=== PATIENT | female | born 1985 | race Caucasian/White ===

== ENCOUNTER 2021-11-05 16:25 | Emergency (ER) | payer BC ==
[~2021-11-05] VITALS: Ht 177.8 cm; Wt 89.0 kg
[2021-11-05] MEDS ORDERED: normal saline 1000ML IV soln IVB ONE (17:10)
[2021-11-05] MEDS ORDERED: oxyCODONE/APAP 5-325mg tablet PO ONE (17:50)
[2021-11-05 17:51] LABS: CLARITY,URINE CLOUDY (Clear); COLOR,URINE YELLOW (Yellow); GLUCOSE, URINE NEGATIVE (Neg); KETONES,URINE NEGATIVE (Neg); LEUKOCYTE ESTERASE ,URINE NEGATIVE (Neg); NITRITES, URINE NEGATIVE (Neg); OCCULT BLOOD,URINE NEGATIVE (Neg); PH,URINE 6.5 (4.8-8.0); PROTEIN,URINE NEGATIVE (Neg); UROBILINOGEN,URINE 0.2 E.U/dL (0.2-1.0)
[2021-11-05 17:53] LABS: UA COLLECTION TYPE CLN CATCH MIDSTREAM
[2021-11-05 18:03] LABS: MUCUS STRANDS MODERATE /LPF (Neg); SQUAMOUS EPITHELIAL CELL,UR MANY /LPF (FEW)
[2021-11-05 18:04] LABS: BACTERIA,URINE FEW /HPF (Neg); RBC,URINE 0-2 /HPF (0-2); WBC,URINE 0-4 /HPF (0-4)
[2021-11-05 18:28] LABS: BASOPHILS # (AUTO) 0.1 X10'3 (0-0.2); BASOPHILS % (AUTO) 0.7 % (0-1); EOSINOPHILS # (AUTO) 0.1 X10'3 (0-0.9); EOSINOPHILS % (AUTO) 0.5 % (0-6); HEMATOCRIT 29.9 % (35.0-45.0); HEMOGLOBIN 9.5 g/dl (12.0-16.0); LYMPHOCYTES # (AUTO) 2.1 X10'3 (1.1-4.8); LYMPHOCYTES % (AUTO) 19.3 % (21-51); MEAN CORPUSCULAR HEMOGLOBIN 21.5 PG (27.0-31.0); MEAN CORPUSCULAR HGB CONC 31.9 g/dL (33.0-36.5); MEAN CORPUSCULAR VOLUME 67.6 FL (78-98); MEAN PLATELET VOLUME 7.7 FL (7.4-10.4); MONOCYTES # (AUTO) 0.6 X10'3 (0-0.9); MONOCYTES % (AUTO) 5.3 % (2-12); NEUTROPHILS # (AUTO) 8.2 X10'3 (1.8-7.7); NEUTROPHILS % (AUTO) 74.2 % (42-75); PLATELET COUNT 321 X10'3 (140-440); RED BLOOD COUNT 4.42 X10'6 (4.20-5.60); RED CELL DISTRIBUTION WIDTH 16.3 % (11.5-14.5)
[2021-11-05] MEDS ORDERED: tamsulosin 0.4mg capsule PO STA (18:29)
[2021-11-05] MEDS ORDERED: acetaminophen 1,000mg/100ml IV 100 ML IV STA (18:29)
[2021-11-05 18:43] LABS: ALANINE AMINOTRANSFERASE 21 U/L (12-78); ALBUMIN 3.2 G/DL (3.4-5.0); ALBUMIN/GLOBULIN RATIO 1.1 (1.1-1.5); ALKALINE PHOSPHATASE 95 IU/L (46-116); ANION GAP 8 (8-16); ASPARTATE AMINO TRANSFERASE 12 U/L (10-37); BILIRUBIN,TOTAL 0.1 MG/DL (0.1-1.0); BLOOD UREA NITROGEN 10 MG/DL (7-18); BUN/CREATININE RATIO 14.5 (6.6-38.0); CALCIUM 9.2 MG/DL (8.5-10.1); CHLORIDE 106 MMOL/L (99-107); CREATININE 0.69 MG/DL (0.40-0.90); GLUCOSE 81 MG/DL (70-104); SODIUM 139 MMOL/L (135-145); TOTAL PROTEIN 6.1 G/DL (6.4-8.2); eGFR > 90 ML/MIN
[2021-11-05 19:23] VITALS: BP 132/72
[2021-11-05 19:24] LABS: PLATELET ESTIMATE NORMAL
[2021-11-05 19:25] LABS: ANISOCYTOSIS 1+; MICROCYTOSIS 2+
[2021-11-05] MEDS ORDERED: OXYC-150 PO (19:25)
[2021-11-05] MEDS ORDERED: LORA-269 PO (19:25)
[2021-11-05] MEDS ORDERED: FLO0.4C PO (19:25)
[2021-11-05] MEDS ORDERED: MIRT45TA83 PO (19:25)
[2021-11-05] MEDS ORDERED: LACO200T2 PO (19:25)
[2021-11-05] MEDS ORDERED: ARIP10TA15 PO (19:25)
[2021-11-05 19:27] LABS: ELLIPTOCYTES FEW
== END 2021-11-05 19:25 | disposition home or self-care (01) ==
LOC: ER 16:27
DX: N20.0 Calculus of kidney (principal); Z87.442 Personal history of urinary calculi; F31.9 Bipolar disorder, unspecified; G89.29 Other chronic pain; Z88.8 Allergy status to other drugs, medicaments and biological substances; Z88.6 Allergy status to analgesic agent; Z79.899 Other long term (current) drug therapy
CPT/HCPCS: 36415; 76770; 80053; 81001; 85008; 85025; 96361; 96374; 99284; J0131; J7030

== ENCOUNTER 2021-12-05 16:54 | Emergency (ER) | payer BC ==
[~2021-12-05] VITALS: Ht 177.8 cm; Wt 88.6 kg
[~2021-12-05 16:54] MED LIST: ARIP10TA15 PO; FLO0.4C PO; LACO200T2 PO; LORA-269 PO; MIRT45TA83 PO; OXYC-150 PO
[2021-12-05] MEDS ORDERED: HYDROcodone/acetaminophen 5mg/325mg tablet PO ONE (18:25)
[2021-12-05] MEDS ORDERED: ondansetron 4mg rapidly disintigrating tab PO ONE (18:25)
[2021-12-05 18:50] VITALS: BP 128/75
== END 2021-12-05 19:46 | disposition home or self-care (01) ==
LOC: ER 16:55
DX: S60.041A Contusion of right ring finger without damage to nail, initial encounter (principal); M79.644 Pain in right finger(s); G89.29 Other chronic pain; F41.9 Anxiety disorder, unspecified; F31.9 Bipolar disorder, unspecified; Z86.69 Personal history of other diseases of the nervous system and sense organs; Z87.442 Personal history of urinary calculi; Z88.6 Allergy status to analgesic agent; Z88.8 Allergy status to other drugs, medicaments and biological substances; Z79.899 Other long term (current) drug therapy; X58.XXXA Exposure to other specified factors, initial encounter; Y93.89 Activity, other specified; Y92.89 Other specified places as the place of occurrence of the external cause; Y99.8 Other external cause status
CPT/HCPCS: 29130; 73140; 99283

== ENCOUNTER 2021-12-27 01:27 | Emergency (ER) | payer BC ==
[~2021-12-27] VITALS: Ht 170.2 cm; Wt 88.6 kg
[~2021-12-27 01:27] MED LIST changes: -FLO0.4C PO
[2021-12-27] MEDS ORDERED: normal saline 1000ml 1,000 ML IV ONE (01:40)
[2021-12-27] MEDS ORDERED: piperacillin/tazo 4.5gm/100ml 100 ML IV ONE (01:40)
[2021-12-27] MEDS ORDERED: morphine 4 MG/ML inj SYRINge IV ONE ×2 (02:25→04:05)
[2021-12-27 02:27] LABS: BASOPHILS # (AUTO) 0.1 X10'3 (0-0.2); BASOPHILS % (AUTO) 1.2 % (0-1); EOSINOPHILS # (AUTO) 0.1 X10'3 (0-0.9); EOSINOPHILS % (AUTO) 0.7 % (0-6); HEMATOCRIT 30.2 % (35.0-45.0); HEMOGLOBIN 9.4 g/dl (12.0-16.0); LYMPHOCYTES # (AUTO) 1.9 X10'3 (1.1-4.8); LYMPHOCYTES % (AUTO) 23.5 % (21-51); MEAN CORPUSCULAR HEMOGLOBIN 20.3 PG (27.0-31.0); MEAN CORPUSCULAR HGB CONC 31.2 g/dL (33.0-36.5); MEAN PLATELET VOLUME 7.4 FL (7.4-10.4); MONOCYTES # (AUTO) 0.4 X10'3 (0-0.9); MONOCYTES % (AUTO) 5.7 % (2-12); NEUTROPHILS # (AUTO) 5.5 X10'3 (1.8-7.7); NEUTROPHILS % (AUTO) 68.9 % (42-75); PLATELET COUNT 435 X10'3 (140-440); RED BLOOD COUNT 4.64 X10'6 (4.20-5.60); RED CELL DISTRIBUTION WIDTH 16.4 % (11.5-14.5); WHITE BLOOD COUNT 7.9 X10'3 (4.5-11.0)
[2021-12-27 02:55] LABS: ALANINE AMINOTRANSFERASE 27 U/L (12-78); ALBUMIN 3.1 G/DL (3.4-5.0); ALBUMIN/GLOBULIN RATIO 0.9 (1.1-1.5); ALKALINE PHOSPHATASE 134 IU/L (46-116); ANION GAP 10 (8-16); ASPARTATE AMINO TRANSFERASE 14 U/L (10-37); BILIRUBIN,TOTAL 0.1 MG/DL (0.1-1.0); BLOOD UREA NITROGEN 14 MG/DL (7-18); BUN/CREATININE RATIO 20.6 (6.6-38.0); CALCIUM 9.7 MG/DL (8.5-10.1); CHLORIDE 111 MMOL/L (99-107); CREATININE 0.68 MG/DL (0.40-0.90); GLUCOSE 116 MG/DL (70-104); LIPASE 141 U/L (73-393); POTASSIUM 3.9 MMOL/L (3.5-5.1); SODIUM 144 MMOL/L (135-145); TOTAL CARBON DIOXIDE 23.4 MMOL/L (24-32); TOTAL PROTEIN 6.7 G/DL (6.4-8.2); eGFR > 90 ML/MIN
[2021-12-27 03:40] LABS: ANISOCYTOSIS 1+; PLATELET ESTIMATE NORMAL
[2021-12-27 03:41] LABS: ELLIPTOCYTES FEW; MICROCYTOSIS 2+
[2021-12-27] MEDS ORDERED: methylnaltrexone br 12mg/0.6ml inj***SubQ only SQ ONE (04:50)
[2021-12-27] MEDS ORDERED: bisacodyl 5mg tablet.DR PO ONE (04:50)
[2021-12-27] MEDS ORDERED: dicyclomine 10mg/ml 2ml ampule IM ONE (04:50)
[2021-12-27] MEDS ORDERED: POLY119P2 PO (04:53)
[2021-12-27] MEDS ORDERED: BISA-78 PO (04:53)
[2021-12-27 05:23] VITALS: BP 122/60
== END 2021-12-27 05:25 | disposition home or self-care (01) ==
LOC: ER 01:27
DX: K59.00 Constipation, unspecified (principal); G89.29 Other chronic pain; F31.9 Bipolar disorder, unspecified; Z88.8 Allergy status to other drugs, medicaments and biological substances; Z88.6 Allergy status to analgesic agent; Z79.899 Other long term (current) drug therapy
CPT/HCPCS: 36415; 74176; 80053; 83605; 83690; 84145; 85008; 85025; 87040; 96365; 96372; 96375; 96376; 99285; J0500; J2212; J2270; J2543; J7030

== ENCOUNTER 2022-01-26 15:08 | Emergency (ER) | payer BC ==
[~2022-01-26] VITALS: Ht 177.8 cm; Wt 88.6 kg
[~2022-01-26 15:08] MED LIST changes: +BISA-78 PO; +POLY119P2 PO
[2022-01-26 15:46] VITALS: BP 135/77
[2022-01-26] MEDS ORDERED: HYDROcodone/acetaminophen 5mg/325mg tablet PO ONE (16:50)
[2022-01-26 16:59] LABS: BASOPHILS # (AUTO) 0.1 X10'3 (0-0.2); BASOPHILS % (AUTO) 1.2 % (0-1); EOSINOPHILS % (AUTO) 0.7 % (0-6); HEMATOCRIT 30.9 % (35.0-45.0); HEMOGLOBIN 9.6 g/dl (12.0-16.0); LYMPHOCYTES # (AUTO) 1.5 X10'3 (1.1-4.8); LYMPHOCYTES % (AUTO) 27.3 % (21-51); MEAN CORPUSCULAR HEMOGLOBIN 19.6 PG (27.0-31.0); MEAN PLATELET VOLUME 7.4 FL (7.4-10.4); MONOCYTES # (AUTO) 0.4 X10'3 (0-0.9); MONOCYTES % (AUTO) 8.2 % (2-12); NEUTROPHILS # (AUTO) 3.4 X10'3 (1.8-7.7); NEUTROPHILS % (AUTO) 62.6 % (42-75); PLATELET COUNT 304 X10'3 (140-440); RED CELL DISTRIBUTION WIDTH 18.3 % (11.5-14.5); WHITE BLOOD COUNT 5.4 X10'3 (4.5-11.0)
[2022-01-26 17:15] LABS: ALANINE AMINOTRANSFERASE 28 U/L (12-78); ALBUMIN 3.5 G/DL (3.4-5.0); ALBUMIN/GLOBULIN RATIO 1.1 (1.1-1.5); ALKALINE PHOSPHATASE 118 IU/L (46-116); ANION GAP 10 (8-16); ASPARTATE AMINO TRANSFERASE 23 U/L (10-37); BILIRUBIN,TOTAL 0.5 MG/DL (0.1-1.0); BLOOD UREA NITROGEN 11 MG/DL (7-18); BUN/CREATININE RATIO 14.9 (6.6-38.0); CALCIUM 8.9 MG/DL (8.5-10.1); CHLORIDE 108 MMOL/L (99-107); CREATININE 0.74 MG/DL (0.40-0.90); GLUCOSE 120 MG/DL (70-104); POTASSIUM 3.6 MMOL/L (3.5-5.1); SODIUM 142 MMOL/L (135-145); TOTAL CARBON DIOXIDE 23.9 MMOL/L (24-32); TOTAL PROTEIN 6.6 G/DL (6.4-8.2); eGFR 88 ML/MIN
[2022-01-26 17:22] LABS: CLARITY,URINE CLEAR (Clear); COLOR,URINE YELLOW (Yellow); GLUCOSE, URINE NEGATIVE (Neg); KETONES,URINE NEGATIVE (Neg); LEUKOCYTE ESTERASE ,URINE NEGATIVE (Neg); NITRITES, URINE NEGATIVE (Neg); OCCULT BLOOD,URINE NEGATIVE (Neg); PROTEIN,URINE NEGATIVE (Neg); UROBILINOGEN,URINE 0.2 E.U/dL (0.2-1.0)
[2022-01-26] MEDS ORDERED: iohexol 300mg/ml 100ml inj. ONE (17:22)
[2022-01-26 17:23] LABS: UA COLLECTION TYPE CLN CATCH MIDSTREAM
[2022-01-26] MEDS ORDERED: HYDR-3965 PO (18:27)
[2022-01-26] MEDS ORDERED: ONDA4TAB12 PO (18:27)
== END 2022-01-26 20:16 | disposition home or self-care (01) ==
LOC: ER 15:10
DX: S62.306A Unspecified fracture of fifth metacarpal bone, right hand, initial encounter for closed fracture (principal); M79.641 Pain in right hand; R07.89 Other chest pain; G89.29 Other chronic pain; F41.9 Anxiety disorder, unspecified; F31.9 Bipolar disorder, unspecified; Z86.69 Personal history of other diseases of the nervous system and sense organs; Z87.442 Personal history of urinary calculi; Z90.49 Acquired absence of other specified parts of digestive tract; Z90.710 Acquired absence of both cervix and uterus; Z88.8 Allergy status to other drugs, medicaments and biological substances; Z88.6 Allergy status to analgesic agent; Z79.899 Other long term (current) drug therapy; V87.7XXA Person injured in collision between other specified motor vehicles (traffic), initial encounter; Y93.89 Activity, other specified; Y92.89 Other specified places as the place of occurrence of the external cause; Y99.8 Other external cause status
CPT/HCPCS: 29125; 36415; 70450; 70486; 71260; 72125; 73130; 74177; 80053; 81003; 85025; 99285; J3490; Q9967

== ENCOUNTER 2022-03-19 12:53 | Emergency (ER) | payer MEDICAID ==
[~2022-03-19] VITALS: Ht 175.3 cm; Wt 88.0 kg
[~2022-03-19 12:53] MED LIST changes: +ONDA4TAB12 PO
[2022-03-19 12:57] VITALS: BP 159/85
[2022-03-19] MEDS ORDERED: ondansetron/PF 4mg/2ml inj IV ONE (14:35)
[2022-03-19] MEDS ORDERED: morphine 4 MG/ML inj SYRINge IV PRN (14:35)
[2022-03-19] MEDS ORDERED: normal saline 1000ML IV soln IVB ONE (14:35)
[2022-03-19 14:51] LABS: BASOPHILS # (AUTO) 0.1 X10'3 (0-0.2); BASOPHILS % (AUTO) 1.1 % (0-1); EOSINOPHILS # (AUTO) 0.1 X10'3 (0-0.9); EOSINOPHILS % (AUTO) 0.7 % (0-6); HEMOGLOBIN 10.5 g/dl (12.0-16.0); LYMPHOCYTES # (AUTO) 2.6 X10'3 (1.1-4.8); LYMPHOCYTES % (AUTO) 30.3 % (21-51); MEAN PLATELET VOLUME 7.9 FL (7.4-10.4); MONOCYTES # (AUTO) 0.4 X10'3 (0-0.9); NEUTROPHILS # (AUTO) 5.4 X10'3 (1.8-7.7); NEUTROPHILS % (AUTO) 62.9 % (42-75); PLATELET COUNT 368 X10'3 (140-440); WHITE BLOOD COUNT 8.5 X10'3 (4.5-11.0)
[2022-03-19 14:53] LABS: CLARITY,URINE CLOUDY (Clear); COLOR,URINE YELLOW (Yellow); GLUCOSE, URINE NEGATIVE (Neg); KETONES,URINE TRACE mg/dl (Neg); LEUKOCYTE ESTERASE ,URINE NEGATIVE (Neg); NITRITES, URINE NEGATIVE (Neg); OCCULT BLOOD,URINE NEGATIVE (Neg); PROTEIN,URINE NEGATIVE (Neg); UROBILINOGEN,URINE 0.2 E.U/dL (0.2-1.0)
[2022-03-19 14:54] LABS: UA COLLECTION TYPE CLN CATCH MIDSTREAM; URINE HCG NEGATIVE (NEG)
[2022-03-19 15:03] LABS: BACTERIA,URINE 2+ /HPF (Neg); CAL OXALATE CRYSTALS 2+ /HPF (NEGATIVE); MUCUS STRANDS MANY /LPF (Neg); RBC,URINE 0-2 /HPF (0-2); SQUAMOUS EPITHELIAL CELL,UR MANY /LPF (FEW); WBC,URINE 0-4 /HPF (0-4)
[2022-03-19 15:03] LABS: ALANINE AMINOTRANSFERASE 85 U/L (12-78); ALBUMIN 4.3 G/DL (3.4-5.0); ALBUMIN/GLOBULIN RATIO 1.2 (1.1-1.5); ALKALINE PHOSPHATASE 184 IU/L (46-116); ANION GAP 9 (8-16); ASPARTATE AMINO TRANSFERASE 19 U/L (10-37); BILIRUBIN,TOTAL 0.2 MG/DL (0.1-1.0); BLOOD UREA NITROGEN 12 MG/DL (7-18); BUN/CREATININE RATIO 15.4 (6.6-38.0); CALCIUM 10.4 MG/DL (8.5-10.1); CHLORIDE 106 MMOL/L (99-107); CREATININE 0.78 MG/DL (0.40-0.90); GLUCOSE 90 MG/DL (70-104); LIPASE 65 U/L (73-393); POTASSIUM 4.1 MMOL/L (3.5-5.1); SODIUM 139 MMOL/L (135-145); TOTAL CARBON DIOXIDE 24.5 MMOL/L (24-32); TOTAL PROTEIN 7.9 G/DL (6.4-8.2); eGFR 83 ML/MIN
[2022-03-19 15:20] LABS: HEMATOCRIT 33.3 % (35.0-45.0); MEAN CORPUSCULAR HEMOGLOBIN 20.2 PG (27.0-31.0); MEAN CORPUSCULAR HGB CONC 31.5 g/dL (33.0-36.5); RED CELL DISTRIBUTION WIDTH 18.6 % (11.5-14.5)
[2022-03-19 15:33] LABS: PLATELET ESTIMATE NORMAL
[2022-03-19 15:34] LABS: ANISOCYTOSIS 2+; ELLIPTOCYTES 1+; HYPOCHROMASIA 2+; MICROCYTOSIS 2+
[2022-03-19] MEDS ORDERED: FLO0.4C PO (16:52)
== END 2022-03-19 17:02 | disposition home or self-care (01) ==
LOC: ER 12:53
DX: R10.32 Left lower quadrant pain (principal); F31.9 Bipolar disorder, unspecified; Z87.442 Personal history of urinary calculi; Z88.5 Allergy status to narcotic agent; Z88.6 Allergy status to analgesic agent; Z88.8 Allergy status to other drugs, medicaments and biological substances; Z90.49 Acquired absence of other specified parts of digestive tract
CPT/HCPCS: 36415; 74176; 80053; 81001; 81025; 83690; 85008; 85025; 99284

== ENCOUNTER 2023-02-25 10:43 | Emergency (ER) | payer MEDICAID, OTHER ==
[~2023-02-25] VITALS: Ht 177.8 cm; Wt 90.9 kg
[~2023-02-25 10:43] MED LIST changes: +PRED10TA PO
[2023-02-25 11:20] LABS: BASOPHILS % (AUTO) 0.5 % (0-1); EOSINOPHILS % (AUTO) 0.3 % (0-6); HEMATOCRIT 42.9 % (35.0-45.0); HEMOGLOBIN 14.1 g/dl (12.0-16.0); LYMPHOCYTES # (AUTO) 1.6 X10'3 (1.1-4.8); LYMPHOCYTES % (AUTO) 16.8 % (21-51); MEAN CORPUSCULAR HEMOGLOBIN 26.1 PG (27.0-31.0); MEAN CORPUSCULAR HGB CONC 32.9 g/dL (33.0-36.5); MEAN CORPUSCULAR VOLUME 79.3 FL (78-98); MONOCYTES # (AUTO) 0.5 X10'3 (0-0.9); MONOCYTES % (AUTO) 5.1 % (2-12); NEUTROPHILS # (AUTO) 7.3 X10'3 (1.8-7.7); NEUTROPHILS % (AUTO) 77.3 % (42-75); PLATELET COUNT 289 X10'3 (140-440); RED BLOOD COUNT 5.41 X10'6 (4.20-5.60); RED CELL DISTRIBUTION WIDTH 14.8 % (11.5-14.5); WHITE BLOOD COUNT 9.4 X10'3 (4.5-11.0)
[2023-02-25] MEDS ORDERED: pantoprazole 40mg IV 80 MG in normal saline 100ml IV soln 100 ML IV ONE ×2 (11:20→18:35)
[2023-02-25] MEDS ORDERED: morphine 4 MG/ML inj SYRINge IV ONE ×3 (11:25→17:10)
[2023-02-25] MEDS: pantoprazole 40 MG vial IV SCH ×2 (11:32→11:43)
[2023-02-25] MEDS ORDERED: levetiracetam inj 1,000 MG in normal saline 100ml IV soln 100 ML IV ONE (12:00)
[2023-02-25 12:08] LABS: ALANINE AMINOTRANSFERASE 32 U/L (12-78); ALBUMIN 3.4 G/DL (3.4-5.0); ALBUMIN/GLOBULIN RATIO 0.9 (1.1-1.5); ALKALINE PHOSPHATASE 130 IU/L (46-116); ANION GAP 9 (8-16); ASPARTATE AMINO TRANSFERASE 15 U/L (10-37); BILIRUBIN,TOTAL 0.3 MG/DL (0.1-1.0); BLOOD UREA NITROGEN 8 MG/DL (7-18); BUN/CREATININE RATIO 9.5 (10.0-20.0); CALCIUM 9.7 MG/DL (8.5-10.1); CHLORIDE 107 MMOL/L (99-107); CREATININE 0.84 MG/DL (0.40-0.90); GLUCOSE 138 MG/DL (70-104); LIPASE 26 U/L (16-77); SODIUM 139 MMOL/L (135-145); TOTAL CARBON DIOXIDE 23.4 MMOL/L (24-32); eCRCL 98 ML/MIN; eGFR 76 ML/MIN
[2023-02-25] MEDS ORDERED: diphenhydrAMINE 50 mg/ml inj IV ONE (14:25)
[2023-02-25] MEDS ORDERED: proCHLORperazine 10 MG/2 ml inj IV ONE (14:25)
[2023-02-25 17:03] VITALS: TEMP 98.6
[2023-02-25] MEDS ORDERED: LACO150T4 PO (17:14)
[2023-02-25] MEDS ORDERED: AMPH20TA3 PO (17:14)
[2023-02-25] MEDS ORDERED: OXYC30TA PO (17:14)
[2023-02-25] MEDS ORDERED: ARIP15TA19 PO (17:14)
[2023-02-25 17:46] LABS: URINE HCG NEGATIVE (NEG)
[2023-02-25 17:48] LABS: BILIRUBIN,URINE NEGATIVE (Neg); CLARITY,URINE CLOUDY (Clear); COLOR,URINE YELLOW (Yellow); GLUCOSE, URINE 100 mg/dl (Neg); KETONES,URINE NEGATIVE (Neg); LEUKOCYTE ESTERASE ,URINE NEGATIVE (Neg); NITRITES, URINE NEGATIVE (Neg); OCCULT BLOOD,URINE NEGATIVE (Neg); PROTEIN,URINE NEGATIVE (Neg)
[2023-02-25 17:58] LABS: UA COLLECTION TYPE CLN CATCH MIDSTREAM
[2023-02-25 18:00] LABS: SQUAMOUS EPITHELIAL CELL,UR MANY /LPF (FEW)
[2023-02-25 18:01] LABS: AMORPHOUS PHOSPHATES 4+; MUCUS STRANDS MANY /LPF (Neg)
[2023-02-25 18:02] LABS: BACTERIA,URINE 2+ /HPF (Neg); URINE AMPHETAMINE SCREEN NEGATIVE (Neg); URINE BARBITUATE SCREEN NEGATIVE (Neg); URINE BENZODIAZEPINES SCREEN NEGATIVE (Neg); URINE CANNABINOID SCREEN POSITIVE (Neg); URINE COCAINE SCREEN NEGATIVE (Neg); URINE METHADONE SCREEN NEGATIVE (Neg); URINE OPIATE SCREEN POSITIVE (Neg); URINE PHENCYCLIDINE SCREEN NEGATIVE (Neg); WBC,URINE 0-4 /HPF (0-4)
[2023-02-25] MEDS ORDERED: PANT-47 PO (18:31)
[2023-02-25] MEDS ORDERED: pantoprazole 40 MG vial IV ONE (18:46)
[2023-02-25 18:57] VITALS: BP 132/95; PULSE 74; RESP 17; O2SAT 98
== END 2023-02-25 18:59 | disposition home or self-care (01) ==
LOC: ER 10:43
DX: R11.15 Cyclical vomiting syndrome unrelated to migraine (principal); F31.9 Bipolar disorder, unspecified; G89.29 Other chronic pain; Z87.442 Personal history of urinary calculi
CPT/HCPCS: 36415; 80053; 80305; 81001; 81025; 83690; 85025; 86885; 86900; 86901; 96374; 96375; 96376; 99285; C9113; J0780; J1200; J1953; J2270; J3490

== ENCOUNTER 2023-06-03 00:28 | Emergency (ER) | payer MEDICAID ==
[~2023-06-03] VITALS: Ht 177.8 cm; Wt 95.5 kg
[~2023-06-03 00:28] MED LIST changes: +AMPH20TA3 PO; -ARIP10TA15 PO; +ARIP15TA19 PO; -BISA-78 PO; +LACO150T4 PO; -LACO200T2 PO; -OXYC-150 PO; +OXYC30TA PO; +PANT-47 PO; -POLY119P2 PO; -PRED10TA PO
[2023-06-03] MEDS: ondansetron/PF 4mg/2ml inj IV ONE (01:09)
[2023-06-03] MEDS: morphine 4 MG/ML inj SYRINge IV ONE ×2 (01:10→02:47)
[2023-06-03] MEDS: normal saline 1000ML IV soln IVB ONE (01:10)
[2023-06-03 01:11] LABS: EOSINOPHILS # (AUTO) 0.1 X10'3 (0-0.9)
[2023-06-03 01:17] LABS: BASOPHILS # (AUTO) 0.1 X10'3 (0-0.2); BASOPHILS % (AUTO) 0.8 % (0-1); EOSINOPHILS % (AUTO) 0.9 % (0-6); HEMATOCRIT 41.6 % (35.0-45.0); HEMOGLOBIN 13.6 g/dl (12.0-16.0); LYMPHOCYTES # (AUTO) 2.5 X10'3 (1.1-4.8); LYMPHOCYTES % (AUTO) 21.2 % (21-51); MEAN CORPUSCULAR HEMOGLOBIN 25.5 PG (27.0-31.0); MEAN CORPUSCULAR HGB CONC 32.7 g/dL (33.0-36.5); MEAN CORPUSCULAR VOLUME 77.9 FL (78-98); MEAN PLATELET VOLUME 8.1 FL (7.4-10.4); MONOCYTES % (AUTO) 8.2 % (2-12); NEUTROPHILS % (AUTO) 68.9 % (42-75); PLATELET COUNT 339 X10'3 (140-440); RED BLOOD COUNT 5.34 X10'6 (4.20-5.60); RED CELL DISTRIBUTION WIDTH 14.2 % (11.5-14.5); WHITE BLOOD COUNT 11.7 X10'3 (4.5-11.0)
[2023-06-03 01:19] LABS: ALBUMIN 3.3 G/DL (3.4-5.0); ANION GAP 12 (8-16); BLOOD UREA NITROGEN 9 MG/DL (7-18); BUN/CREATININE RATIO 7.8 (10.0-20.0); CALCIUM 9.8 MG/DL (8.5-10.1); CHLORIDE 109 MMOL/L (99-107); CREATININE 1.16 MG/DL (0.40-0.90); GLUCOSE 73 MG/DL (70-104); LIPASE 42 U/L (16-77); POTASSIUM 4.1 MMOL/L (3.5-5.1); SODIUM 142 MMOL/L (135-145); eCRCL 71 ML/MIN; eGFR 52 ML/MIN
[2023-06-03 02:23] LABS: BILIRUBIN,URINE NEGATIVE (Neg); CLARITY,URINE CLOUDY (Clear); COLOR,URINE YELLOW (Yellow); GLUCOSE, URINE 250 mg/dl (Neg); KETONES,URINE NEGATIVE (Neg); LEUKOCYTE ESTERASE ,URINE NEGATIVE (Neg); NITRITES, URINE NEGATIVE (Neg); OCCULT BLOOD,URINE NEGATIVE (Neg); PROTEIN,URINE NEGATIVE (Neg); URINE HCG NEGATIVE (NEG); UROBILINOGEN,URINE 0.2 E.U/dL (0.2-1.0)
[2023-06-03 02:31] LABS: UA COLLECTION TYPE CLN CATCH MIDSTREAM
[2023-06-03 02:33] LABS: RBC,URINE 0-2 /HPF (0-2); SQUAMOUS EPITHELIAL CELL,UR MODERATE /LPF (FEW); WBC,URINE 0-4 /HPF (0-4)
[2023-06-03 02:34] LABS: CAL OXALATE CRYSTALS 4+ /HPF (NEGATIVE)
[2023-06-03 02:40] LABS: MUCUS STRANDS FEW /LPF (Neg)
[2023-06-03 02:44] LABS: BACTERIA,URINE 3+ /HPF (Neg)
[2023-06-03 02:45] LABS: URINE AMPHETAMINE SCREEN NEGATIVE (Neg); URINE BARBITUATE SCREEN NEGATIVE (Neg); URINE BENZODIAZEPINES SCREEN NEGATIVE (Neg); URINE CANNABINOID SCREEN POSITIVE (Neg); URINE COCAINE SCREEN NEGATIVE (Neg); URINE METHADONE SCREEN NEGATIVE (Neg); URINE OPIATE SCREEN POSITIVE (Neg); URINE PHENCYCLIDINE SCREEN NEGATIVE (Neg)
[2023-06-03] MEDS: normal saline 1000ml 1,000 ML IV ONE ×2 (02:47→02:51)
[2023-06-03] MEDS: acetaminophen 1,000mg/100ml IV 100 ML IV ONE (03:57)
[2023-06-03] MEDS: fentaNYL/PF 50MCG/1 ML 2ML syringe IV ONE (03:57)
[2023-06-03 04:02] VITALS: TEMP 98.2
[2023-06-03] MEDS: bisacodyl 5mg tablet.DR PO ONE (04:24)
[2023-06-03] MEDS: methylnaltrexone br 12mg/0.6ml inj***SubQ only SQ ONE (04:24)
[2023-06-03] MEDS: orphenadrine citrate 60mg/2ml inj. IM ONE (04:26)
[2023-06-03 04:35] VITALS: BP 147/95; PULSE 94; RESP 18; O2SAT 98
== END 2023-06-03 04:36 | disposition home or self-care (01) ==
LOC: ER 00:30
DX: M54.9 Dorsalgia, unspecified (principal); Z88.5 Allergy status to narcotic agent; Z88.8 Allergy status to other drugs, medicaments and biological substances; Z88.1 Allergy status to other antibiotic agents; Z79.899 Other long term (current) drug therapy; Z90.49 Acquired absence of other specified parts of digestive tract
CPT/HCPCS: 36415; 74176; 80048; 80305; 81001; 81025; 83690; 85025; 93005; 96361; 96372; 96374; 96375; 96376; 99285; J2212; J2270; J2360; J2405; J3010; J7030

== ENCOUNTER 2023-06-25 12:12 | Emergency (ER) | payer MEDICAID ==
[~2023-06-25] VITALS: Ht 170.2 cm; Wt 86.4 kg
[2023-06-25 12:19] VITALS: TEMP 98.7
[2023-06-25 12:53] LABS: BASOPHILS # (AUTO) 0.1 X10'3 (0-0.2); BASOPHILS % (AUTO) 0.8 % (0-1); EOSINOPHILS # (AUTO) 0.1 X10'3 (0-0.9); EOSINOPHILS % (AUTO) 0.5 % (0-6); HEMATOCRIT 44.9 % (35.0-45.0); HEMOGLOBIN 14.5 g/dl (12.0-16.0); LYMPHOCYTES # (AUTO) 1.9 X10'3 (1.1-4.8); MEAN CORPUSCULAR HEMOGLOBIN 24.9 PG (27.0-31.0); MEAN CORPUSCULAR HGB CONC 32.4 g/dL (33.0-36.5); MEAN CORPUSCULAR VOLUME 76.8 FL (78-98); MEAN PLATELET VOLUME 8.3 FL (7.4-10.4); MONOCYTES # (AUTO) 0.6 X10'3 (0-0.9); MONOCYTES % (AUTO) 5.3 % (2-12); NEUTROPHILS # (AUTO) 8.5 X10'3 (1.8-7.7); NEUTROPHILS % (AUTO) 76.4 % (42-75); PLATELET COUNT 355 X10'3 (140-440); RED BLOOD COUNT 5.85 X10'6 (4.20-5.60); RED CELL DISTRIBUTION WIDTH 14.7 % (11.5-14.5); WHITE BLOOD COUNT 11.1 X10'3 (4.5-11.0)
[2023-06-25] MEDS ORDERED: ondansetron/PF 4mg/2ml inj IV ONE (13:00)
[2023-06-25] MEDS ORDERED: HYDROmorphone 1 mg/ml syringe IV ONE (13:00)
[2023-06-25 13:04] LABS: ALBUMIN 3.6 G/DL (3.4-5.0); ANION GAP 13 (8-16); BLOOD UREA NITROGEN 9 MG/DL (7-18); BUN/CREATININE RATIO 9.9 (10.0-20.0); CALCIUM 10.4 MG/DL (8.5-10.1); CHLORIDE 108 MMOL/L (99-107); CREATININE 0.91 MG/DL (0.40-0.90); GLUCOSE 113 MG/DL (70-104); POTASSIUM 3.6 MMOL/L (3.5-5.1); SODIUM 141 MMOL/L (135-145); TOTAL CARBON DIOXIDE 19.6 MMOL/L (24-32); eCRCL 82 ML/MIN; eGFR 69 ML/MIN
[2023-06-25 13:10] LABS: ALANINE AMINOTRANSFERASE 22 U/L (12-78); ALBUMIN 3.6 G/DL (3.4-5.0); ALBUMIN/GLOBULIN RATIO 0.9 (1.1-1.5); ALKALINE PHOSPHATASE 190 IU/L (46-116); ASPARTATE AMINO TRANSFERASE 15 U/L (10-37); BILIRUBIN,DIRECT 0.1 MG/DL (0-0.3); BILIRUBIN,TOTAL 0.3 MG/DL (0.1-1.0); TOTAL PROTEIN 7.4 G/DL (6.4-8.2)
[2023-06-25] MEDS: diatr meglu/diatrizoate 30ml oral sol.-(3 dose) bottle PO SCH (13:11)
[2023-06-25] MEDS: ondansetron/PF 4mg/2ml inj IV ONE (13:30)
[2023-06-25] MEDS: HYDROmorphone 1 mg/ml syringe IV ONE (13:31)
[2023-06-25] MEDS: morphine 4 MG/ML inj SYRINge IV ONE (14:55)
[2023-06-25 15:37] VITALS: BP 134/86; PULSE 86; RESP 15; O2SAT 99
[2023-06-25 15:38] LABS: BILIRUBIN,URINE NEGATIVE (Neg); CLARITY,URINE SLIGHTLY CLOUDY (Clear); COLOR,URINE YELLOW (Yellow); GLUCOSE, URINE NEGATIVE (Neg); KETONES,URINE NEGATIVE (Neg); LEUKOCYTE ESTERASE ,URINE NEGATIVE (Neg); NITRITES, URINE NEGATIVE (Neg); OCCULT BLOOD,URINE NEGATIVE (Neg); PH,URINE 7.5 (4.8-8.0); PROTEIN,URINE NEGATIVE (Neg); UROBILINOGEN,URINE 0.2 E.U/dL (0.2-1.0)
[2023-06-25 15:39] LABS: PREOP URINE HCG NEGATIVE (NEGATIVE)
[2023-06-25 15:44] LABS: MUCUS STRANDS MODERATE /LPF (Neg); SQUAMOUS EPITHELIAL CELL,UR MANY /LPF (FEW); UA COLLECTION TYPE CLN CATCH MIDSTREAM
[2023-06-25 15:45] LABS: BACTERIA,URINE 2+ /HPF (Neg); RBC,URINE 0-2 /HPF (0-2); WBC,URINE 0-4 /HPF (0-4)
[2023-06-25 16:32] LABS: BETA HCG,QUANTITATIVE < 1.0 mIU/ml
[2023-06-25 16:50] LABS: URINE AMPHETAMINE SCREEN NEGATIVE (Neg); URINE BARBITUATE SCREEN NEGATIVE (Neg); URINE BENZODIAZEPINES SCREEN POSITIVE (Neg); URINE CANNABINOID SCREEN POSITIVE (Neg); URINE COCAINE SCREEN NEGATIVE (Neg); URINE METHADONE SCREEN NEGATIVE (Neg); URINE OPIATE SCREEN POSITIVE (Neg); URINE PHENCYCLIDINE SCREEN NEGATIVE (Neg)
== END 2023-06-25 16:18 | disposition home or self-care (01) ==
LOC: ER 12:12
DX: R10.11 Right upper quadrant pain (principal); Z88.8 Allergy status to other drugs, medicaments and biological substances; G89.29 Other chronic pain; F41.9 Anxiety disorder, unspecified; F31.9 Bipolar disorder, unspecified; Z90.49 Acquired absence of other specified parts of digestive tract; Z90.710 Acquired absence of both cervix and uterus
CPT/HCPCS: 36415; 71045; 74176; 80048; 80076; 80305; 81001; 81025; 84702; 85025; 96374; 96375; 99285; J1170; J2270; J2405; Q9963

== ENCOUNTER 2023-07-26 20:42 | Emergency (ER) | payer MEDICAID ==
[~2023-07-26] VITALS: Ht 177.8 cm; Wt 90.9 kg
[2023-07-26] MEDS: midazolam 1 mg/ML 2ml injection IV ONE (20:52)
[2023-07-26] MEDS: ketorolac tromethamine 15mg/ml inj. IM ONE (21:18)
[2023-07-26 21:27] LABS: BASOPHILS # (AUTO) 0.1 X10'3 (0-0.2); BASOPHILS % (AUTO) 0.8 % (0-1); EOSINOPHILS # (AUTO) 0.1 X10'3 (0-0.9); EOSINOPHILS % (AUTO) 0.8 % (0-6); HEMATOCRIT 42.8 % (35.0-45.0); HEMOGLOBIN 14.2 g/dl (12.0-16.0); LYMPHOCYTES # (AUTO) 3.7 X10'3 (1.1-4.8); LYMPHOCYTES % (AUTO) 28.4 % (21-51); MEAN CORPUSCULAR HEMOGLOBIN 25.2 PG (27.0-31.0); MEAN CORPUSCULAR HGB CONC 33.1 g/dL (33.0-36.5); MEAN CORPUSCULAR VOLUME 76.1 FL (78-98); MEAN PLATELET VOLUME 8.3 FL (7.4-10.4); MONOCYTES # (AUTO) 0.8 X10'3 (0-0.9); MONOCYTES % (AUTO) 6.3 % (2-12); NEUTROPHILS # (AUTO) 8.2 X10'3 (1.8-7.7); NEUTROPHILS % (AUTO) 63.7 % (42-75); PLATELET COUNT 375 X10'3 (140-440); RED BLOOD COUNT 5.63 X10'6 (4.20-5.60); RED CELL DISTRIBUTION WIDTH 15.7 % (11.5-14.5); WHITE BLOOD COUNT 12.9 X10'3 (4.5-11.0)
[2023-07-26 21:38] LABS: ALANINE AMINOTRANSFERASE 28 U/L (12-78); ALBUMIN 3.6 G/DL (3.4-5.0); ALBUMIN/GLOBULIN RATIO 0.9 (1.1-1.5); ALKALINE PHOSPHATASE 173 IU/L (46-116); ANION GAP 21 (8-16); ASPARTATE AMINO TRANSFERASE 10 U/L (10-37); BILIRUBIN,TOTAL 0.2 MG/DL (0.1-1.0); BLOOD UREA NITROGEN 8 MG/DL (7-18); CALCIUM 10.8 MG/DL (8.5-10.1); CHLORIDE 104 MMOL/L (99-107); CREATININE 0.89 MG/DL (0.40-0.90); GLUCOSE 94 MG/DL (70-104); POTASSIUM 3.3 MMOL/L (3.5-5.1); SODIUM 139 MMOL/L (135-145); TOTAL PROTEIN 7.5 G/DL (6.4-8.2); eCRCL 92 ML/MIN; eGFR 71 ML/MIN
[2023-07-26 21:41] LABS: TOTAL CARBON DIOXIDE 14.5 MMOL/L (24-32)
[2023-07-26] MEDS: HYDROmorphone/PF 0.2 MG/ML SYRINGE IV ONE (21:48)
[2023-07-26 22:50] VITALS: BP 130/85; PULSE 89; RESP 16; TEMP 98.3; O2SAT 98
[2023-07-27] MEDS ORDERED: FAMO20TA44 PO (11:28)
== END 2023-07-26 22:53 | disposition home or self-care (01) ==
LOC: ER 20:42
DX: F41.9 Anxiety disorder, unspecified (principal); G40.909 Epilepsy, unspecified, not intractable, without status epilepticus; Z88.8 Allergy status to other drugs, medicaments and biological substances; Z88.1 Allergy status to other antibiotic agents; Z88.6 Allergy status to analgesic agent; Z79.899 Other long term (current) drug therapy; Z90.49 Acquired absence of other specified parts of digestive tract; Z90.710 Acquired absence of both cervix and uterus
CPT/HCPCS: 36415; 80053; 85025; 96374; 96375; 99284; J1170; J2250

== ENCOUNTER 2023-07-27 09:37 | Emergency (ER) | payer MEDICAID ==
[~2023-07-27] VITALS: Ht 177.8 cm; Wt 88.6 kg
[2023-07-27 09:42] VITALS: TEMP 98
[2023-07-27] MEDS: HYDROmorphone inj. 0.5 MG/0.5 ML DISP.SYRIN IV ONE (10:08)
[2023-07-27 11:00] LABS: URINE AMPHETAMINE SCREEN NEGATIVE (Neg); URINE BARBITUATE SCREEN NEGATIVE (Neg); URINE BENZODIAZEPINES SCREEN POSITIVE (Neg); URINE CANNABINOID SCREEN POSITIVE (Neg); URINE COCAINE SCREEN NEGATIVE (Neg); URINE METHADONE SCREEN NEGATIVE (Neg); URINE OPIATE SCREEN POSITIVE (Neg); URINE PHENCYCLIDINE SCREEN NEGATIVE (Neg)
[2023-07-27 11:22] LABS: ALANINE AMINOTRANSFERASE 28 U/L (12-78); ALBUMIN 3.2 G/DL (3.4-5.0); ALBUMIN/GLOBULIN RATIO 0.9 (1.1-1.5); ALKALINE PHOSPHATASE 154 IU/L (46-116); ANION GAP 10 (8-16); ASPARTATE AMINO TRANSFERASE 13 U/L (10-37); BILIRUBIN,TOTAL 0.3 MG/DL (0.1-1.0); BLOOD UREA NITROGEN 13 MG/DL (7-18); BUN/CREATININE RATIO 15.7 (10.0-20.0); CALCIUM 10.5 MG/DL (8.5-10.1); CHLORIDE 109 MMOL/L (99-107); CREATININE 0.83 MG/DL (0.40-0.90); GLUCOSE 85 MG/DL (70-104); POTASSIUM 3.7 MMOL/L (3.5-5.1); SODIUM 142 MMOL/L (135-145); TOTAL CARBON DIOXIDE 22.9 MMOL/L (24-32); TOTAL PROTEIN 6.8 G/DL (6.4-8.2); eCRCL 98 ML/MIN; eGFR 77 ML/MIN
[2023-07-27] MEDS ORDERED: FAMO20TA44 PO (11:28)
[2023-07-27] MEDS: HYDROmorphone/PF 0.2 MG/ML SYRINGE IV ONE (11:37)
[2023-07-27 11:47] VITALS: BP 112/76; PULSE 98; RESP 18; O2SAT 99
== END 2023-07-27 11:48 | disposition home or self-care (01) ==
LOC: ER 09:37
DX: F41.9 Anxiety disorder, unspecified (principal); R10.9 Unspecified abdominal pain; F31.9 Bipolar disorder, unspecified; Z88.8 Allergy status to other drugs, medicaments and biological substances; Z88.1 Allergy status to other antibiotic agents; Z79.899 Other long term (current) drug therapy; Z90.49 Acquired absence of other specified parts of digestive tract
CPT/HCPCS: 36415; 74176; 80053; 80305; 96374; 96376; 99285; J1170

== ENCOUNTER 2023-09-09 21:07 | Emergency (ER) | payer MEDICAID ==
[~2023-09-09] VITALS: Ht 177.8 cm; Wt 86.4 kg
[~2023-09-09 21:07] MED LIST changes: -ARIP15TA19 PO; +ARIP15TA68 PO; +FAMO20TA44 PO; +ONDA-243 PO; -ONDA4TAB12 PO
[2023-09-09 21:38] VITALS: BP 140/94; PULSE 109; RESP 18; TEMP 97.5; O2SAT 99
[2023-09-09 22:03] LABS: BASOPHILS % (AUTO) 0.4 % (0-1); EOSINOPHILS % (AUTO) 0.2 % (0-6); HEMATOCRIT 42.8 % (35.0-45.0); HEMOGLOBIN 14.1 g/dl (12.0-16.0); LYMPHOCYTES # (AUTO) 1.6 X10'3 (1.1-4.8); LYMPHOCYTES % (AUTO) 19.1 % (21-51); MEAN CORPUSCULAR HEMOGLOBIN 25.4 PG (27.0-31.0); MEAN CORPUSCULAR HGB CONC 32.9 g/dL (33.0-36.5); MEAN PLATELET VOLUME 8.1 FL (7.4-10.4); MONOCYTES # (AUTO) 0.4 X10'3 (0-0.9); MONOCYTES % (AUTO) 4.9 % (2-12); NEUTROPHILS # (AUTO) 6.4 X10'3 (1.8-7.7); NEUTROPHILS % (AUTO) 75.4 % (42-75); PLATELET COUNT 344 X10'3 (140-440); RED BLOOD COUNT 5.56 X10'6 (4.20-5.60); RED CELL DISTRIBUTION WIDTH 16.9 % (11.5-14.5); WHITE BLOOD COUNT 8.5 X10'3 (4.5-11.0)
[2023-09-09 22:08] LABS: ALANINE AMINOTRANSFERASE 33 U/L (12-78); ALBUMIN 3.5 G/DL (3.4-5.0); ALBUMIN/GLOBULIN RATIO 0.9 (1.1-1.5); ALKALINE PHOSPHATASE 172 IU/L (46-116); ANION GAP 7 (8-16); ASPARTATE AMINO TRANSFERASE 11 U/L (10-37); BILIRUBIN,TOTAL 0.2 MG/DL (0.1-1.0); BLOOD UREA NITROGEN 6 MG/DL (7-18); BUN/CREATININE RATIO 7.6 (10.0-20.0); CALCIUM 10.3 MG/DL (8.5-10.1); CHLORIDE 107 MMOL/L (99-107); CREATININE 0.79 MG/DL (0.40-0.90); GLUCOSE 148 MG/DL (70-104); LIPASE 23 U/L (16-77); POTASSIUM 3.8 MMOL/L (3.5-5.1); SODIUM 140 MMOL/L (135-145); TOTAL CARBON DIOXIDE 26.4 MMOL/L (24-32); TOTAL PROTEIN 7.3 G/DL (6.4-8.2); eCRCL 103 ML/MIN; eGFR 81 ML/MIN
[2023-09-10] MEDS: orphenadrine citrate 60mg/2ml inj. IM ONE (00:33)
[2023-09-10] MEDS: normal saline 1000ml 1,000 ML IV ONE (00:34)
[2023-09-10] MEDS: acetaminophen 1,000mg/100ml IV 100 ML IV ONE (00:41)
[2023-09-10] MEDS: oxyCODONE IR 5mg (immed. release) tablet PO ONE (00:41)
[2023-09-10] MEDS: ondansetron 4mg rapidly disintigrating tab PO ONE (00:45)
[2023-09-10] MEDS ORDERED: racepinephrine 11.25mg/0.5ml nebule IH ONE (01:50)
[2023-09-10] MEDS ORDERED: albuterol 1.25 MG/3 ML (1/2 strength) nebule NEB ONE (01:50)
[2023-09-10 02:06] LABS: URINE HCG NEGATIVE (NEG)
[2023-09-10 02:08] LABS: BILIRUBIN,URINE SMALL (Neg); CLARITY,URINE CLOUDY (Clear); COLOR,URINE YELLOW (Yellow); GLUCOSE, URINE NEGATIVE (Neg); KETONES,URINE NEGATIVE (Neg); LEUKOCYTE ESTERASE ,URINE NEGATIVE (Neg); NITRITES, URINE NEGATIVE (Neg); OCCULT BLOOD,URINE NEGATIVE (Neg); PROTEIN,URINE NEGATIVE (Neg); UROBILINOGEN,URINE 0.2 E.U/dL (0.2-1.0)
[2023-09-10 02:14] LABS: UA COLLECTION TYPE CLN CATCH MIDSTREAM
[2023-09-10 02:15] LABS: CAL OXALATE CRYSTALS 4+ /HPF (NEGATIVE); MUCUS STRANDS MANY /LPF (Neg); SQUAMOUS EPITHELIAL CELL,UR MANY /LPF (FEW)
[2023-09-10 02:16] LABS: BACTERIA,URINE 1+ /HPF (Neg); RBC,URINE 0-2 /HPF (0-2); WBC,URINE 0-4 /HPF (0-4)
[2023-09-10] MEDS ORDERED: LIDO700A32 TOP (02:26)
[2023-09-10 02:31] LABS: URINE AMPHETAMINE SCREEN POSITIVE (Neg); URINE BARBITUATE SCREEN NEGATIVE (Neg); URINE BENZODIAZEPINES SCREEN NEGATIVE (Neg); URINE CANNABINOID SCREEN POSITIVE (Neg); URINE COCAINE SCREEN NEGATIVE (Neg); URINE METHADONE SCREEN NEGATIVE (Neg); URINE OPIATE SCREEN NEGATIVE (Neg); URINE PHENCYCLIDINE SCREEN NEGATIVE (Neg)
== END 2023-09-10 03:07 | disposition home or self-care (01) ==
LOC: ER 21:08
DX: M54.50 Low back pain, unspecified (principal); G89.29 Other chronic pain; F41.9 Anxiety disorder, unspecified; F31.9 Bipolar disorder, unspecified; Z88.8 Allergy status to other drugs, medicaments and biological substances; Z88.5 Allergy status to narcotic agent; Z88.6 Allergy status to analgesic agent; Z79.899 Other long term (current) drug therapy; Z90.710 Acquired absence of both cervix and uterus; Z90.49 Acquired absence of other specified parts of digestive tract
CPT/HCPCS: 36415; 80053; 80305; 81001; 81025; 83690; 85025; 96360; 96372; 99283; J2360; J7030

== ENCOUNTER 2023-09-10 10:54 | Emergency (ER) | payer MEDICAID ==
[~2023-09-10] VITALS: Ht 177.8 cm; Wt 86.4 kg
[~2023-09-10 10:54] MED LIST changes: +LIDO700A32 TOP
[2023-09-10 10:58] VITALS: TEMP 98.6
[2023-09-10 11:06] VITALS: BP 126/84; PULSE 83; RESP 16; O2SAT 98
[2023-09-10 11:52] LABS: URINE HCG NEGATIVE (NEG)
== END 2023-09-10 11:32 | disposition left against medical advice (07) ==
LOC: ER 10:55
DX: N23 Unspecified renal colic (principal); G89.29 Other chronic pain; Z88.8 Allergy status to other drugs, medicaments and biological substances; Z88.5 Allergy status to narcotic agent; Z88.6 Allergy status to analgesic agent; Z88.1 Allergy status to other antibiotic agents; Z79.899 Other long term (current) drug therapy; Z90.49 Acquired absence of other specified parts of digestive tract
CPT/HCPCS: 81025; 99283

== ENCOUNTER 2023-10-20 02:56 | Emergency (ER) | payer MEDICAID ==
[~2023-10-20] VITALS: Ht 177.8 cm; Wt 88.6 kg
[2023-10-20] MEDS: metoclopramide 5 mg/ml inj IV ONE (03:49)
[2023-10-20] MEDS: diphenhydrAMINE 50 mg/ml inj IV ONE (03:49)
[2023-10-20] MEDS: normal saline 1000ML IV soln IVB ONE ×2 (03:49→04:40)
[2023-10-20 04:05] LABS: BASOPHILS # (AUTO) 0.1 X10'3 (0-0.2); BASOPHILS % (AUTO) 0.8 % (0-1); EOSINOPHILS % (AUTO) 0.6 % (0-6); HEMATOCRIT 40.4 % (35.0-45.0); HEMOGLOBIN 13.2 g/dl (12.0-16.0); LYMPHOCYTES # (AUTO) 2.2 X10'3 (1.1-4.8); LYMPHOCYTES % (AUTO) 27.2 % (21-51); MEAN CORPUSCULAR HEMOGLOBIN 25.4 PG (27.0-31.0); MEAN CORPUSCULAR HGB CONC 32.8 g/dL (33.0-36.5); MEAN CORPUSCULAR VOLUME 77.5 FL (78-98); MONOCYTES # (AUTO) 0.4 X10'3 (0-0.9); MONOCYTES % (AUTO) 5.3 % (2-12); NEUTROPHILS # (AUTO) 5.3 X10'3 (1.8-7.7); NEUTROPHILS % (AUTO) 66.1 % (42-75); PLATELET COUNT 304 X10'3 (140-440); RED BLOOD COUNT 5.21 X10'6 (4.20-5.60); RED CELL DISTRIBUTION WIDTH 16.2 % (11.5-14.5)
[2023-10-20 04:21] LABS: ALBUMIN 3.1 G/DL (3.4-5.0); ANION GAP 10 (8-16); BLOOD UREA NITROGEN 8 MG/DL (7-18); BUN/CREATININE RATIO 11.6 (10.0-20.0); CALCIUM 9.7 MG/DL (8.5-10.1); CHLORIDE 109 MMOL/L (99-107); CREATININE 0.69 MG/DL (0.40-0.90); GLUCOSE 100 MG/DL (70-104); SODIUM 141 MMOL/L (135-145); TOTAL CARBON DIOXIDE 21.8 MMOL/L (24-32); eCRCL 118 ML/MIN; eGFR > 90 ML/MIN
[2023-10-20 04:27] LABS: POTASSIUM 4.5 MMOL/L (3.5-5.1)
[2023-10-20 06:19] LABS: BILIRUBIN,URINE NEGATIVE (Neg); CLARITY,URINE SLIGHTLY CLOUDY (Clear); COLOR,URINE YELLOW (Yellow); GLUCOSE, URINE NEGATIVE (Neg); KETONES,URINE NEGATIVE (Neg); LEUKOCYTE ESTERASE ,URINE NEGATIVE (Neg); NITRITES, URINE NEGATIVE (Neg); OCCULT BLOOD,URINE NEGATIVE (Neg); PROTEIN,URINE NEGATIVE (Neg); UROBILINOGEN,URINE 0.2 E.U/dL (0.2-1.0)
[2023-10-20 06:31] LABS: UA COLLECTION TYPE CLN CATCH MIDSTREAM
[2023-10-20 06:32] LABS: BACTERIA,URINE FEW /HPF (Neg); CAL OXALATE CRYSTALS 4+ /HPF (NEGATIVE); RBC,URINE NONE SEEN /HPF (0-2); SQUAMOUS EPITHELIAL CELL,UR MANY /LPF (FEW); WBC,URINE 0-4 /HPF (0-4)
[2023-10-20 06:33] LABS: MUCUS STRANDS FEW /LPF (Neg)
[2023-10-20 06:37] VITALS: BP 118/78; PULSE 67; RESP 18; TEMP 98.1; O2SAT 97
[2023-10-23] MEDS ORDERED: CIPR2.5D21 RIGHTEYE (15:51)
== END 2023-10-20 06:40 | disposition home or self-care (01) ==
LOC: ER 02:56
DX: R10.84 Generalized abdominal pain (principal); R11.2 Nausea with vomiting, unspecified; G89.29 Other chronic pain; F41.9 Anxiety disorder, unspecified; F31.9 Bipolar disorder, unspecified; Z90.710 Acquired absence of both cervix and uterus; Z88.8 Allergy status to other drugs, medicaments and biological substances; Z79.899 Other long term (current) drug therapy; Z90.49 Acquired absence of other specified parts of digestive tract; Z87.442 Personal history of urinary calculi
CPT/HCPCS: 36415; 71045; 80048; 81001; 83735; 84145; 85025; 96361; 96374; 96375; 99285; J1200; J2765; J7030

== ENCOUNTER 2024-03-02 12:17 | Emergency (ER) | payer MEDICAID ==
[~2024-03-02] VITALS: Ht 177.8 cm; Wt 95.0 kg
[2024-03-02 12:18] VITALS: BP 133/86; PULSE 88; RESP 16; TEMP 98.2; O2SAT 97
== END 2024-03-02 13:26 | disposition left against medical advice (07) ==
LOC: ER 12:18
DX: R10.9 Unspecified abdominal pain (principal); M54.50 Low back pain, unspecified; R31.9 Hematuria, unspecified; R30.0 Dysuria; Z87.442 Personal history of urinary calculi; Z88.8 Allergy status to other drugs, medicaments and biological substances; Z53.21 Procedure and treatment not carried out due to patient leaving prior to being seen by health care provider

== ENCOUNTER 2024-03-02 14:18 | Emergency (ER) | payer MEDICAID ==
[~2024-03-02] VITALS: Ht 177.8 cm; Wt 86.4 kg
[2024-03-02 14:23] VITALS: BP 155/88; PULSE 92; RESP 17; TEMP 97.9; O2SAT 97
== END 2024-03-02 16:24 | disposition left against medical advice (07) ==
LOC: ER 14:19
DX: R10.84 Generalized abdominal pain (principal); R31.9 Hematuria, unspecified; Z88.8 Allergy status to other drugs, medicaments and biological substances; Z53.21 Procedure and treatment not carried out due to patient leaving prior to being seen by health care provider

== ENCOUNTER 2024-07-10 18:17 | Emergency (ER) | payer MEDICAID ==
[~2024-07-10] VITALS: Ht 177.8 cm; Wt 96.2 kg
--- NOTE | 2024-07-10 18:44 | Physician Documentation ---
History of Present Illness ~ Chief Complaint: See Chief Complaint Stated Complaint: FOOT AND HAND PAIN Time Seen by MD: 18:34 OK to notify your PCP?: Yes Primary Medical Doctor: Vargas Source: patient Mode of Arrival: POV Exam Limitations: no limitations HPI 39-year-old female who complains of right middle finger abrasion over the PIP joint as well as left foot pain and bruising to the 2nd toe with limited range motion. She is not clear on what happened as last night was her 39th birthday alliance party and she was intoxicated. She took Tylenol and Advil about 7 hours prior to arrival with no relief. Tetanus witin 5 years: Yes Medication Reconciliation Allergies: Coded Allergies: haloperidol (Verified Allergy, Severe, Hives, Nausea, 10/23/23) tramadol (Verified Allergy, Severe, throat swelling, 10/23/23) ketorolac (Verified Allergy, Intermediate, 10/23/23) meloxicam (Verified Allergy, Unknown, 10/23/23) ibuprofen (Verified Adverse Reaction, Severe, 10/23/23) S/P gastric bipass Scheduled Aripiprazole (Aripiprazole), 1 TAB PO HS, (Reported) Dextroamphetamine/Amphetamine (Adderall 20 mg Tablet), 1 TAB PO TID, (Reported) Famotidine (Pepcid AC), 1 TAB PO DAILY Lacosamide (Lacosamide), 1 TAB PO BID, (Reported) Lidocaine (Lidoderm), 1 PATCH TOP DAILY Mirtazapine (Remeron), 1 TAB PO HS ONDANSETRON ODT 4mg tablet (Ondansetron Odt), 1 TABLET PO Q6H Pantoprazole Sodium (PROTONIX tablet), 40 MG PO BID Scheduled PRN Lorazepam (Ativan), 1 TAB PO Q8H PRN for for anxiety/agitation Oxycodone Hcl (Oxycodone Hcl), 1 TAB PO Q6H PRN for pain, (Reported) Past Medical History Past Medical History: Multiple Sclerosis, Seizures, Kidney Stones, Chronic Pain, Anxiety, Bipolar Past Surgical History: noncontributory, cholecystectomy, hysterectomy Alcohol Use: None Drug Use: none Lives with: S/O Lives In: Home Occupation: employed Review of Systems All Other Systems at this time: Reviewed and Negative Physical Exam Vital Signs: RN Vital Signs have been reviewed: Yes, Temperature: 98.4, Source: Temporal, Heart Rate: 94, Respiratory Rate: 18, BP: 146/88, Pulse Oximetry: 97, Weight: 96.150 Oxygen Flow Rate: 0 Pulse Oximetry Reflects: adequate oxygenation Physical Exam General: Alert, no apparent distress. HEENT: PERRL, EOMI, no injection, moist mucous membranes. Neck: Full range of motion. Respiratory: Lungs clear, no respiratory distress. Chest: No accessory muscle use. Cardiovascular: Regular rate and rhythm, no murmurs. Extremities: Limited range of motion in left toes. Edema and bruising at top of foot along 2nd metatarsal. Abrasion to right middle finger PIP joint, good ROM. Neurologic: Oriented x4. Psychiatric: Normal mood and affect. Skin: Normal color, warm and dry. No edema, no ecchymosis. Progress Results/Orders Reviewed/noted all lab results: Yes Results/Orders Orders - BREN RAMACHANDRAN LIQUOR ESTABLISHMENT MANAGER Foot, Complete (3vw Min) (07/10/24 18:34) Completed Orders - BREN RAMACHANDRAN LIQUOR ESTABLISHMENT MANAGER Hydrocodone/Apap 10/325 ([place] 10/325mg (07/10/24 18:35) Foot, Complete (3vw Min) (07/10/24 18:34) Medications Received in ER Medications (Trade) Dose Ordered Sig/Vijay Route PRN Reason Start Time Stop Time Status Last Admin Dose Admin ([place] 10/325mg tab) 1 tab ONCE ONCE PO 07/10/24 18:35 07/10/24 18:36 DC 07/10/24 18:48 1 TAB Vital Signs 07/10/24 07/10/24 18:21 18:48 Temp 98.4 Pulse 94 Resp 18 16 B/P (MAP) 146/88 Pulse Ox 97 O2 Flow Rate 0 EKG/XRAY/CT/US/VASC/MRI Bone/Soft Tissue X-Ray (Ext.) : Additional Comment left foot x-ray as interpreted by me; no joint effusion, no acute fracture, no soft tissue swelling, no dislocation, or foreign body. Medical Decision Making Findings 39-year-old female with left foot pain and right middle finger abrasion from unknown incident during her 39th birthday alliance party last night while she was intoxicated. She received a tetanus vaccine within the past 5 years. Ordered left foot x-ray and a [place] for pain relief. I offered to x-ray the right fingers but due to her full range of motion in the fingers she declined the x- ray. [place] administered in the department Left foot x-ray is negative for acute fracture or toe dislocation. We discussed the limitations of x-ray and that sometimes tiny fractures can not be seen initially on x-ray but may show up on subsequent x-rays once the healing process starts. If she is still having symptoms, she may need repeat x-ray or other imaging. She should seen by her primary care provider in the next 3 days and return back here for any new or wo rsening symptoms. She can use Tylenol and/or ibuprofen for pain relief. She should rest, ice, elevate her foot and wear closed toed shoes. I attempted to place her in a postop shoe to the left foot but she admitted that she would not wear it so declined it at this time. She should keep her middle finger abrasion clean and dry and use the bacitracin on it while it heals. She should monitor for signs or symptoms of infection as she has not been given an oral antibiotic. She agrees with this plan. General Diff Dx:Considerations: Include: Contusion, Laceration, Neurovascular injury, Open fracture Departure Disposition: 01 HOME / SELF CARE / HOMELESS Impression: Primary Impression: Foot pain, left Additional Impression: Abrasion of finger of right hand Condition: Stable Discharge Instructions: Abrasion, [id number], RICE Therapy for Routine Care of Injuries, [id number] Additional Instructions: Please use the postop shoe to help provide support to your left foot. We discussed that your x-rays were negative for a fracture however sometimes tiny fractures may not be seen on the initial x-ray and may be found on subsequent x- rays once the healing process starts. If you are still having symptoms please be seen for follow up imaging. Follow up with her primary care provider in the next 3 days and return back here for any new or worsening symptoms. Please keep your middle finger abrasion clean and dry. You can use the bacitracin that was given here in the department to help minimize the risk of infection. Please monitor for signs or symptoms of infection and be seen if they occur as you have not been given an oral antibiotic. Can use Tylenol and/or ibuprofen for pain relief and can rest, ice, elevate the left foot to help with inflammation. Use closed toed shoes. Referrals: NO PRIMARY CARE PROVIDER (PCP) Education Educated: Patient Educated regarding: diagnosis, treatment, prognosis, need for follow up Signature Scribe Signature: . Attestation: Scribed for Bren Ramachandran Videotape Sales Representative by Bren Tian NP . 07/10/24 19:34 BREN RAMACHANDRAN LIQUOR ESTABLISHMENT MANAGER July 10, 2024 18:44
[2024-07-10] MEDS: HYDROcodone/acetaminophen 10/325mg tab PO ONE (18:48)
--- NOTE | 2024-07-10 19:07 | RADIOLOGY REPORT ---
CLINICAL INDICATION: left foot pain and bruising TECHNIQUE: DI FOOT, COMPLETE (3VW MIN) Comparison: HAND, COMPLETE (3VW MIN) on DOS: 01/26/22 FINDINGS: No osseous or joint abnormality identified with no fracture or dislocation. Joint spaces are normal. Small enthesophyte noted at Achilles tendon insertion. IMPRESSION: No fracture or dislocation.
[2024-07-10] MEDS: bacitracin 15gm ointment TP ONE (19:41)
[2024-07-10 19:42] VITALS: BP 140/94; PULSE 99; RESP 16; TEMP 98.4; O2SAT 99
== END 2024-07-10 19:41 | disposition home or self-care (01) ==
LOC: ER 18:18
DX: S90.31XA Contusion of right foot, initial encounter (principal); S60.412A Abrasion of right middle finger, initial encounter; F31.9 Bipolar disorder, unspecified; Z88.8 Allergy status to other drugs, medicaments and biological substances; Z88.6 Allergy status to analgesic agent; Z88.5 Allergy status to narcotic agent; Z90.49 Acquired absence of other specified parts of digestive tract; Z90.710 Acquired absence of both cervix and uterus; Z79.899 Other long term (current) drug therapy; Z87.442 Personal history of urinary calculi; X58.XXXA Exposure to other specified factors, initial encounter; Y93.89 Activity, other specified; Y92.89 Other specified places as the place of occurrence of the external cause; Y99.8 Other external cause status
CPT/HCPCS: 73630; 99283; L3260

== ENCOUNTER 2024-07-27 19:42 | Emergency (ER) | payer MEDICAID ==
[~2024-07-27] VITALS: Ht 177.8 cm; Wt 95.0 kg
[~2024-07-27 19:42] MED LIST changes: +LIDO-52 TOP; -LIDO700A32 TOP
[2024-07-27] MEDS: HYDROcodone/acetaminophen 5mg/325mg tablet PO ONE ×2 (20:51→23:22)
[2024-07-27] MEDS: ondansetron 4mg rapidly disintigrating tab PO ONE (20:52)
--- NOTE | 2024-07-27 21:32 | RADIOLOGY REPORT ---
CHEST RADIOGRAPH Indication: fall Technique: Single frontal view of the chest with 3 views of bilateral ribs available for evaluation. Comparison: None FINDINGS: Lines and Tubes: None Lungs: No focal consolidation. Pleura: No effusion. No pneumothorax. Cardiomediastinal contours: Unremarkable Bones: No acute osseous abnormality. IMPRESSION: No acute cardiopulmonary disease. No acute rib fractures.
--- NOTE | 2024-07-27 21:34 | RADIOLOGY REPORT ---
EXAM: CT CT HEAD INDICATION: fall TECHNIQUE: CT of the head without intravenous contrast. Radiation Dose : 1. Head: CT Dose: CTDI volume is 51.35 by mGy. Dose-length product is 969.17 mGy*cm The dose indicators for CT are the volume Computed Tomography (CT) Dose Index (CTDIvol) and the Dose Length Product (DLP), and are measured in units of mGy and mGy-cm, respectively. These indicators are not patient dose, but values generated from the CT scanner acquisition factors. The report includes radiation exposure data for exposures received during this examination. COMPARISON: CT HEAD on DOS: 01/26/22 FINDINGS: There is no evidence of acute intracranial hemorrhage, extra-axial collection, mass effect, midline s hift, herniation or hydrocephalus. The ventricles, sulci and cisterns are age appropriate. The good-white differentiation is intact. The visualized paranasal sinuses and mastoid air cells are clear. The surrounding soft tissues and osseous structures are unremarkable. IMPRESSION: 1. No acute intracranial abnormality. Radiation optimization: All CT scans at this facility use at least one of these dose optimization elsa hniques: automated exposure control mA and/or kV adjustment per patient size (includes targeted exam s where dose is matched to clinical indication) or iterative reconstruction.
--- NOTE | 2024-07-27 21:37 | RADIOLOGY REPORT ---
EXAM: CT CT CERVICAL SPINE INDICATION: fall EXAM DATE: 07/27/2024 08:53 PM COMPARISON: CT CERVICAL SPINE on DOS: 01/26/22 TECHNIQUE: Multiple axial CT images of the cervical spine were obtained using bone algorithm. Axial a nd coronal reformatting was done. Bone and soft tissue windows were reviewed. Radiation Dose Information: CT Dose: CTDI volume is 22.7 mGy. Dose-length product is 559.8 mGy*cm FINDINGS: The cervical alignment is intact. No acute cervical spine fracture is identified. The vertebral body heights are intact. No suspicious osseous lesions are identified. No significant degenerative changes are identified. There is no prevertebral soft tissue swelling. IMPRESSION: 1. No evidence of acute cervical spine fracture or traumatic malalignment. 2. All CT scans at this medical facility are performed using dose modulation techniques as appropriat e to a performed exam including the following: Automated exposure control was utilized; adjustment of the MA and/or KV according to patient size; and use of iterative reconstruction technique.
[2024-07-27] MEDS ORDERED: LACO150T2 PO ×2 (23:00→23:01)
--- NOTE | 2024-07-27 23:04 | Physician Documentation ---
History of Present Illness ~ Chief Complaint: Rib pain Stated Complaint: FALL Time Seen by MD: 22:55 Primary Medical Doctor: Vargas Mode of Arrival: EMS HPI Patient presents to the emergency room with left-sided rib pain and feeling as if she has suffered a concussion. She had a seizure two days ago and fell on a pile of wood. Since that time she has been feeling foggy. She states she has had concussions before and this is what it feels like. Patient has not taken her lacosamide for proximally two weeks as she is working with her doctor to get prescriptions however have not heard back. Tetanus within 5 Years?: Yes (2022) Allergies: Coded Allergies: haloperidol (Verified Allergy, Severe, Hives, Nausea, 07/27/24) tramadol (Verified Allergy, Severe, throat swelling, 07/27/24) ketorolac (Verified Allergy, Intermediate, 07/27/24) meloxicam (Verified Allergy, Unknown, 07/27/24) ibuprofen (Verified Adverse Reaction, Severe, 07/27/24) S/P gastric bipass Active Prescriptions See Medication Reconciliation Form. Medication Reconciliation Scheduled Aripiprazole (Aripiprazole), 1 TAB PO HS, (Reported) Dextroamphetamine/Amphetamine (Adderall 20 mg Tablet), 1 TAB PO TID, (Reported) Famotidine (Pepcid AC), 1 TAB PO DAILY Lacosamide (Lacosamide), 1 TAB PO BID, (Reported) Lacosamide (Vimpat), 1 TAB PO Q12H Lidocaine (Lidoderm), 1 PATCH TOP DAILY Mirtazapine (Remeron), 1 TAB PO HS ONDANSETRON ODT 4mg tablet (Ondansetron Odt), 1 TABLET PO Q6H Pantoprazole Sodium (PROTONIX tablet), 40 MG PO BID Scheduled PRN Lorazepam (Ativan), 1 TAB PO Q8H PRN for for anxiety/agitation Oxycodone Hcl (Oxycodone Hcl), 1 TAB PO Q6H PRN for pain, (Reported) Past Medical History Past Medical History: Multiple Sclerosis, Seizures, Kidney Stones, Chronic Pain, Anxiety, Bipolar Past Surgical History: noncontributory, cholecystectomy, hysterectomy Alcohol Use: None Drug Use: none Lives with: S/O Lives In: Home Occupation: employed Review of Systems ROS All review of systems negative except as per HPI Physical Exam Vital Signs: Temperature: 97.5, Source: Oral, Heart Rate: 66, Respiratory Rate: 14, BP: 130/74, Pulse Oximetry: 97, Weight: 95.000 Oxygen Flow Rate: 0 Physical Exam General: Patient is awake, alert, oriented x4 in no acute distress Head: Normocephalic and atraumatic. Eyes: Conjunctival normal. EOMI. PERRL. ENT: Mucous membranes moist. Neck: Supple, trachea is midline. Chest: Clear to auscultation bilaterally without rales, rhonchi, or wheezes. There is no accessory muscle use or retractions. Tenderness to palpation to left axial ribs Cardiac: RRR without murmurs, gallops, or rubs. Progress Results/Orders Results/Orders Orders - FACUNDO OCONNOR MD Ct Cervical Spine (07/27/24 20:45) Ct Head (07/27/24 20:45) Ribs,Bilat 3vw Min (07/27/24 21:06) Completed Orders - FACUNDO OCONNOR MD Hydrocodone/Apap 5/325mg Tab ([place] 5/32 (07/27/24 20:40) Ondansetron Disint. Tablet (Zofran Odt T (07/27/24 20:40) Ct Cervical Spine (07/27/24 20:45) Ct Head (07/27/24 20:45) Ribs,Bilat 3vw Min (07/27/24 21:06) Medications Received in ER Medications (Trade) Dose Ordered Sig/Vijay Route PRN Reason Start Time Stop Time Status Last Admin Dose Admin ([place] 5/325mg tablet) 2 tab ONCE ONCE PO 07/27/24 20:40 07/27/24 20:41 DC 07/27/24 20:51 2 TAB (Zofran ODT tablet) 4 mg ONCE ONCE PO 07/27/24 20:40 07/27/24 20:41 DC 07/27/24 20:52 4 MG Vital Signs 07/27/24 07/27/24 07/27/24 07/27/24 19:48 19:55 20:51 21:00 Temp 97.5 Pulse 88 66 Resp 16 16 16 14 B/P (MAP) 113/67 130/74 (92) Pulse Ox 98 97 O2 Flow Rate 0 0 Medical Decision Making Findings Patient presents to the emergency room for evaluation of rib pain in post concussion like symptoms as per HPI. Differentials include but are not limited to epidural bleed, subdural bleed, intraparenchymal bleed, cervical fracture, rib fracture therefore imaging indicated which was reassuring. Given history and he had not feel patient requires emergent labs. I will give a refill of seizure medications with instructions to continue to follow up with primary care as well as ER precautions. Departure Disposition: HOME / SELF CARE / HOMELESS Impression: Primary Impression: Rib pain Additional Impression: Concussion Condition: Stable Discharge Instructions: Concussion, Adult, [id number], Rib Contusion Additional Instructions: Continue to follow up with your doctor Referrals: NO PRIMARY CARE PROVIDER (PCP) Prescriptions Lacosamide (Vimpat) 150 Mg Tablet 1 TAB PO Q12H, #15 TAB 0 Refills Prov: FACUNDO OCONNOR MD 07/27/24 Signature Scribe Signature: No scribe Attestation: The note accurately reflects work and decisions made by me.Facundo Oconnor MD 07/27/24 23:04 FACUNDO OCONNOR MD Jul 27, 2024 23:04
[2024-07-27 23:24] VITALS: BP 101/60; PULSE 80; RESP 16; TEMP 97.5; O2SAT 99
== END 2024-07-27 23:26 | disposition home or self-care (01) ==
LOC: ER 19:43
DX: S06.0XAA Concussion with loss of consciousness status unknown, initial encounter (principal); R07.81 Pleurodynia; F41.9 Anxiety disorder, unspecified; F31.9 Bipolar disorder, unspecified; Z88.5 Allergy status to narcotic agent; Z90.49 Acquired absence of other specified parts of digestive tract; Z90.710 Acquired absence of both cervix and uterus; Z87.442 Personal history of urinary calculi; Z88.8 Allergy status to other drugs, medicaments and biological substances; Z88.6 Allergy status to analgesic agent; Z79.899 Other long term (current) drug therapy; W22.8XXA Striking against or struck by other objects, initial encounter; Y93.89 Activity, other specified; Y92.89 Other specified places as the place of occurrence of the external cause; Y99.8 Other external cause status
CPT/HCPCS: 70450; 71110; 72125; 99284

== ENCOUNTER 2024-09-02 06:55 | Emergency (ER) | payer MEDICAID ==
[~2024-09-02] VITALS: Ht 177.8 cm; Wt 96.9 kg
[~2024-09-02 06:55] MED LIST changes: +LACO150T2 PO
--- NOTE | 2024-09-02 07:17 | Physician Documentation ---
History of Present Illness ~ Chief Complaint: Seizure Stated Complaint: SEIZURE,FALL Time Seen by MD: 07:15 Primary Medical Doctor: Vargas SAAVEDRA Patient presents to the emergency room for evaluation of seizures and vomiting. Patient has history of seizures and cyclic vomiting. She has missed her last three days of seizure medications secondary to prescription not being filled by her doctor. She states this morning she woke up vomiting and she ended up falling in between the shower in the toilet with resulting seizure lasting a proximally 45 seconds for significant other. Currently she is complaining of back pain and neck pain. Negative head strike. Medication Reconciliation Allergies: Coded Allergies: haloperidol (Verified Allergy, Severe, Hives, Nausea, 07/27/24) tramadol (Verified Allergy, Severe, throat swelling, 07/27/24) ketorolac (Verified Allergy, Intermediate, 07/27/24) meloxicam (Verified Allergy, Unknown, 07/27/24) ibuprofen (Verified Adverse Reaction, Severe, 07/27/24) S/P gastric bipass Scheduled Aripiprazole (Aripiprazole), 1 TAB PO HS, (Reported) Dextroamphetamine/Amphetamine (Adderall 20 mg Tablet), 1 TAB PO TID, (Reported) Famotidine (Pepcid AC), 1 TAB PO DAILY Lacosamide (Lacosamide), 1 TAB PO BID, (Reported) Lacosamide (Vimpat), 1 TAB PO Q12H Lidocaine (Lidoderm), 1 PATCH TOP DAILY Mirtazapine (Remeron), 1 TAB PO HS ONDANSETRON ODT 4mg tablet (Ondansetron Odt), 1 TABLET PO Q6H Pantoprazole Sodium (PROTONIX tablet), 40 MG PO BID Scheduled PRN Lorazepam (Ativan), 1 TAB PO Q8H PRN for for anxiety/agitation Oxycodone Hcl (Oxycodone Hcl), 1 TAB PO Q6H PRN for pain, (Reported) Past Medical History Past Medical History: Multiple Sclerosis, Seizures, Kidney Stones, Chronic Pain, Anxiety, Bipolar Past Surgical History: noncontributory, cholecystectomy, hysterectomy Alcohol Use: None Drug Use: none Lives with: S/O Lives In: Home Occupation: employed Review of Systems ROS All review of systems negative except as per HPI Physical Exam Vital Signs: Temperature: 98.0, Source: Oral, Heart Rate: 89, Respiratory Rate: 21, BP: 132/92, Pulse Oximetry: 99, Weight: 96.900 Physical Exam General: Patient is awake, alert, oriented x4 in mild distress Head: Normocephalic and atraumatic. Eyes: Conjunctival normal. EOMI. PERRL. ENT: Mucous membranes moist. Neck: Supple, trachea is midline. In C-collar Chest: Clear to auscultation bilaterally without rales, rhonchi, or wheezes. There is no accessory muscle use or retractions. Cardiac: RRR without murmurs, gallops, or rubs. Abd: Soft, nondistended, nontender, with normoactive bowel sounds. No guarding, rebound, or rigidity. Extremities: Normal strength. Normal range of motion. No deformities or edema. Progress Results/Orders Results/Orders Orders - FACUNDO OCONNOR MD Urinalysis, Cult If Indicated (09/02/24 07:19) Ct Cervical Spine (09/02/24 08:17) Ct T&L Spine (09/02/24 08:16) Completed Orders - FACUNDO OCONNOR MD Cbc/Diff (09/02/24 07:19) BMP (09/02/24 07:19) Levetiracetam Inj (Keppra Inj) (09/02/24 07:20) Normal Saline 1000ml (0.9% Sodium Chlori (09/02/24 07:20) Ondansetron Inj. (Zofran 4mg/2ml Vial) (09/02/24 07:20) Morphine 4mg/Ml Inj. (Morphine Inj.) (09/02/24 07:20) Metoclopramide Inj (Reglan Inj) (09/02/24 07:20) Diphenhydramine Inj (Benadryl Inj.) (09/02/24 07:20) Acetaminophen 1,000mg/100ml Iv (Ofirmev (09/02/24 07:20) Ct Cervical Spine (09/02/24 08:17) Electrocardiogram (09/02/24 07:24) Lacosamide 50mg Tablet (Vimpat 50mg Tabl (09/02/24 07:25) Hcg Serum Qt (09/02/24 07:18) Ct T&L Spine (09/02/24 08:16) Morphine 4mg/Ml Inj. (Morphine Inj.) (09/02/24 08:20) Orphenadrine Citrate Inj. (Norflex Inj.) (09/02/24 09:45) Medications Received in ER Medications (Trade) Dose Ordered Sig/Vijay Route PRN Reason Start Time Stop Time Status Last Admin Dose Admin Levetiracetam 750 mg/Sodium Chloride 107.5 ml @ 430 mls/hr ONCE ONCE IV 09/02/24 07:20 09/02/24 07:34 DC 09/02/24 08:23 430 MLS/HR Sodium Chloride 1,000 ml @ 1,000 mls/hr ONCE ONCE IV 09/02/24 07:20 09/02/24 08:19 DC 09/02/24 07:55 1,000 MLS/HR (Zofran 4mg/2ml vial) 8 mg ONCE ONCE IV 09/02/24 07:20 09/02/24 07:23 DC 09/02/24 07:50 8 MG (morphine inj.) 4 mg ONCE ONCE IV 09/02/24 07:20 09/02/24 07:23 DC 09/02/24 07:55 4 MG (Reglan inj) 5 mg ONCE ONCE IV 09/02/24 07:20 09/02/24 07:23 DC 09/02/24 07:51 5 MG (Benadryl inj.) 25 mg ONCE ONCE IV 09/02/24 07:20 09/02/24 07:23 DC 09/02/24 07:51 25 MG (VIMPAT 50mg tablet) 50 mg ONCE ONCE PO 09/02/24 07:25 09/02/24 07:27 DC 09/02/24 08:32 50 MG (morphine inj.) 4 mg ONCE ONCE IV 09/02/24 08:20 09/02/24 08:21 DC 09/02/24 08:30 4 MG Vital Signs 09/02/24 09/02/24 09/02/24 09/02/24 06:57 07:55 08:02 08:30 Temp 98.0 Pulse 89 78 Resp 21 16 16 B/P (MAP) 132/92 144/95 (111) Pulse Ox 99 97 09/02/24 09/02/24 08:30 09:33 Pulse 85 Resp 16 16 B/P (MAP) 139/91 (107) Pulse Ox 100 O2 Flow Rate 0 Laboratory Tests Test 09/02/24 07:16 09/02/24 07:18 Glucometer 91 White Blood Count 8.5 Red Blood Count 5.14 Hemoglobin 13.3 Hematocrit 40.2 Mean Corpuscular Volume 78.2 Mean Corpuscular Hemoglobin 25.9 L Mean Corpuscular Hemoglobin Concent 33.1 Red Cell Distribution Width 15.2 H Platelet Count 315 Mean Platelet Volume 7.8 Neutrophils (%) (Auto) 79.8 H Lymphocytes (%) (Auto) 16.0 L Monocytes (%) (Auto) 3.4 Eosinophils (%) (Auto) 0.4 Basophils (%) (Auto) 0.4 Neutrophils # (Auto) 6.8 Lymphocytes # (Auto) 1.4 Monocytes # (Auto) 0.3 Eosinophils # (Auto) 0.0 Basophils # (Auto) 0.0 CBC Comment Sodium Level 140 Potassium Level 3.7 Chloride Level 108 H Carbon Dioxide Level 24.9 Anion Gap 7 L Blood Urea Nitrogen 5 L Creatinine 0.82 Estimated GFR/1.73 m2 77 BUN/Creatinine Ratio 6.1 L Glucose Level 96 Calcium Level 9.8 Albumin 3.3 L HCG Beta Subunit < 1.0 Chemistry Comments Medical Decision Making Findings Patient presents to the emergency room with some back pain after seizure. Differentials include but are not limited to lumbago, fractures, dislocations, soft tissue injury therefore emergent labs and imaging indicated. Labs and imaging reassuring. I do not feel patient requires CT scan of the head as that has no red flags and patient has known history of seizures. Patient has her seizure medication waiting for her at the pharmacy and she has been instructed to take it. Departure Disposition: HOME / SELF CARE / HOMELESS Impression: Primary Impression: Seizure disorder Condition: Stable Discharge Instructions: Seizure, Adult Referrals: NO PRIMARY CARE PROVIDER (PCP) Prescriptions Cyclobenzaprine* (Cyclobenzaprine*) 10 Mg Tablet 1 TAB PO Q8H for muscle spasms for 10 Days, #30 TAB 0 Refills Prov: FACUNDO OCONNOR MD 09/02/24 Education Educated: Patient Educated regarding: diagnosis, treatment, need for follow up Signature Scribe Signature: No scribe Attestation: The note accurately reflects work and decisions made by me.Facundo Oconnor MD 09/02/24 09:49 FACUNDO OCONNOR MD Sep 02, 2024 07:17
--- NOTE | 2024-09-02 07:40 | ELECTROCARDIOGRAPH REPORT ---
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 Justin Carr Measurements Intervals [place] Rate: 68 P: 30 AK: 135 QRS: 10 QRSD: 94 T: -4 QT: 388 QTc: 413 Interpretive Statements Sinus rhythm Electronically Signed On 09-02-2024 18:20:[address] Justin Carr Please click the below link to view image of tracing.
[2024-09-02 07:47] LABS: MEAN PLATELET VOLUME 7.8 FL (7.4-10.4); RED CELL DISTRIBUTION WIDTH 15.2 % (11.5-14.5)
[2024-09-02] MEDS: ondansetron/PF 4mg/2ml inj IV ONE (07:50)
[2024-09-02] MEDS: metoclopramide 5 mg/ml inj IV ONE (07:51)
[2024-09-02] MEDS: normal saline 1000ml 1,000 ML IV ONE (07:55)
[2024-09-02] MEDS: morphine 4 MG/ML inj SYRINge IV ONE ×2 (07:55→08:30)
[2024-09-02] MEDS: acetaminophen 1,000mg/100ml IV 100 ML IV ONE (08:12)
[2024-09-02 08:17] LABS: CREATININE 0.82 MG/DL (0.40-0.90); TOTAL CARBON DIOXIDE 24.9 MMOL/L (24-32); eCRCL 99 ML/MIN; eGFR 77 ML/MIN
[2024-09-02] MEDS: levetiracetam inj 750 MG in normal saline 100ml IV soln 100 ML IV ONE (08:23)
[2024-09-02] MEDS: LACOSAMIDE 50 MG TABLET PO ONE (08:32)
--- NOTE | 2024-09-02 08:35 | RADIOLOGY REPORT ---
EXAM: CT CT CERVICAL SPINE HISTORY: fall, trauma, pain COMPARISON: CT CT CERVICAL SPINE on DOS: 07/27/24, CT CERVICAL SPINE on DOS: 01/26/22 CTDIvol 20.4 mGy, DLP 432 mGy*cm. TECHNIQUE: Multiple axial CT images of the spine were obtained using bone algorithm. Axial and hooker l reformatting was done. Bone and soft tissue windows were reviewed. FINDINGS: No evidence of definite acute fracture, spinal dislocation, or significant appearing acute subluxatio n is seen. IMPRESSION: No definite CT evidence of acute fracture or dislocation of the bony cervical spine.
--- NOTE | 2024-09-02 09:04 | RADIOLOGY REPORT ---
EXAM: CT CT T L SPINE INDICATION: fall COMPARISON: None TECHNIQUE: Multiple axial CT images of the thoracic spine were obtained using bone algorithm. Axial and coronal reformatting was done. Bone and soft tissue windows were reviewed. Radiation Dose Information: CT Dose: CTDI volume is 25 mGy. Dose-length product is 250 mGy*cm FINDINGS: No CT evidence of acute fracture or traumatic mal-alignment. The visualized paraspinal soft tissues a re grossly unremarkable. The disc spaces are relatively preserved. There is multilevel degenerative change of the spine, with disc space narrowing, subchondral sclerosis, and marginal osteophyte formation. IMPRESSION: No CT evidence of acute fracture or traumatic mal-alignment of the bony thoracic spine. Radiation optimization: All CT scans at this facility use at least one of these dose optimization elsa hniques: automated exposure control mA and/or kV adjustment per patient size (includes targeted exam s where dose is matched to clinical indication) or iterative reconstruction.
[2024-09-02] MEDS ORDERED: CYCL-1 PO (09:49)
[2024-09-02] MEDS: orphenadrine citrate 60mg/2ml inj. IM ONE (09:55)
[2024-09-02 10:08] VITALS: BP 126/76; PULSE 73; RESP 13; TEMP 98; O2SAT 100
== END 2024-09-02 09:59 | disposition home or self-care (01) ==
LOC: ER 06:55
DX: G40.909 Epilepsy, unspecified, not intractable, without status epilepticus (principal); F31.9 Bipolar disorder, unspecified; Z88.5 Allergy status to narcotic agent; Z88.6 Allergy status to analgesic agent; Z90.710 Acquired absence of both cervix and uterus; Z90.49 Acquired absence of other specified parts of digestive tract; Z79.899 Other long term (current) drug therapy
CPT/HCPCS: 36415; 72125; 72128; 72131; 80048; 82948; 84702; 85025; 93005; 96372; 96374; 96375; 96376; 99285; J1200; J1953; J2270; J2360; J2405; J2765; J7030

== ENCOUNTER 2024-09-05 07:45 | Emergency (ER) | payer MEDICAID ==
[~2024-09-05 07:45] MED LIST changes: +CYCL-1 PO
--- NOTE | 2024-09-05 07:56 | Physician Documentation ---
History of Present Illness ~ Stated Complaint: ABD PAIN Time Seen by MD: 07:47 Primary Medical Doctor: Vargas Source: patient, EMS, EMS notes reviewed Mode of Arrival: EMS Exam Limitations: no limitations HPI Chief Complaint: Right lower quadrant abdominal pain and low back pain Caveat: None Independent Historians: Paramedics History of Present Illness: Patient is a 39-year-old woman brought in by paramedics from home for severe right lower quadrant abdominal pain and groin pain and right low back pain. This pain has been present for two weeks and has been getting progressively worse. Pain is currently severe, described as sharp and constant. Patient has very low right back pain that she described as throbbing. Patient has had associated nausea and vomiting for three days and has not had been able to keep anything down. No diarrhea. No fever. Medical records reviewed: Patient was seen in the ER three days ago for seizure Review of systems: All systems were reviewed and are negative except for what is indicated in the history of present illness. Past Medical History: Seizure disorder, multiple sclerosis, cyclic vomiting syndrome Past Surgical History: Gastric bypass Sha-en-Y Social History: No tobacco use, no alcohol use, marijuana use Medications: Reviewed as documented Nursing Notes Allergies: Reviewed as documented in Nursing Notes Medication Reconciliation Allergies: Coded Allergies: haloperidol (Verified Allergy, Severe, Hives, Nausea, 07/27/24) tramadol (Verified Allergy, Severe, throat swelling, 07/27/24) ketorolac (Verified Allergy, Intermediate, 07/27/24) meloxicam (Verified Allergy, Unknown, 07/27/24) ibuprofen (Verified Adverse Reaction, Severe, 07/27/24) S/P gastric bipass Scheduled Aripiprazole (Aripiprazole), 1 TAB PO HS, (Reported) Cyclobenzaprine* (Cyclobenzaprine*), 1 TAB PO Q8H Dextroamphetamine/Amphetamine (Adderall 20 mg Tablet), 1 TAB PO TID, (Reported) Famotidine (Pepcid AC), 1 TAB PO DAILY Lacosamide (Lacosamide), 1 TAB PO BID, (Reported) Lacosamide (Vimpat), 1 TAB PO Q12H Lidocaine (Lidoderm), 1 PATCH TOP DAILY Mirtazapine (Remeron), 1 TAB PO HS ONDANSETRON ODT 4mg tablet (Ondansetron Odt), 1 TABLET PO Q6H Pantoprazole Sodium (PROTONIX tablet), 40 MG PO BID Scheduled PRN Lorazepam (Ativan), 1 TAB PO Q8H PRN for for anxiety/agitation Oxycodone Hcl (Oxycodone Hcl), 1 TAB PO Q6H PRN for pain, (Reported) Past Medical History Past Medical History: Multiple Sclerosis, Seizures, Kidney Stones, Chronic Pain, Anxiety, Bipolar Past Surgical History: noncontributory, cholecystectomy, hysterectomy Alcohol Use: None Drug Use: none Lives with: S/O Lives In: Home Occupation: employed Review of Systems All Other Systems at this time: Reviewed and Negative ROS Patient denies any other acute symptoms other than above. All other systems are negative Physical Exam Vital Signs: RN Vital Signs have been reviewed: Yes Pulse Oximetry Reflects: adequate oxygenation Physical Exam General Appearance: MODERATE DISTRESS HEENT: Normal OP, moist oral mucosa, PERRL, EOMI Neck: supple, normal ROM, trachea midline Pulmonary: No respiratory distress, CTA, BS equal Cardiac: RRR, no murmur, rub or gallop, GI: nondistended, soft, RIGHT LOWER QUADRANT TENDERNESS IN RIGHT GROIN TENDERNESS, normal bowel sounds, no guarding, no rebound Back: Extremities: normal ROM, no swelling, non-tender Skin: intact, dry, warm, no rashes Neuro: AAOx3, speech is clear, no focal motor weakness Psych: normal affect, good eye contact, no apparent hallucination, normal speech Progress Results/Orders Results/Orders Orders - KELVIN SANTOYO MD Monitor (09/05/24 07:49) Saline Lock (09/05/24 07:49) Nothing By Mouth (09/05/24 Dinner) Ct Abdomen Pelvis (09/05/24 10:00) Cult Urine + [place] Ct (09/05/24 10:13) Oxycodone Sr Tablet (Oxycontin Tablet) (09/05/24 14:10) Completed Orders - KELVIN SANTOYO MD Cbc/Diff (09/05/24 07:49) Lipase (09/05/24 07:49) Ondansetron Inj. (Zofran 4mg/2ml Vial) (09/05/24 07:50) Morphine 4mg/Ml Inj. (Morphine Inj.) (09/05/24 07:50) Normal Saline 1000ml (0.9% Sodium Chlori (09/05/24 07:50) Hcg, Ur Ql (09/05/24 07:49) CMP (09/05/24 07:49) Fentanyl/Pf (Fentanyl 0.05 Mg/Ml Syringe (09/05/24 09:10) Ct Abdomen Pelvis (09/05/24 10:00) Ua W/Microscopic, Cult If Ind (09/05/24 09:41) Hydromorphone 1 Mg/Ml/Pf (Dilaudid Inj.) (09/05/24 11:20) Medications Received in ER Medications (Trade) Dose Ordered Sig/Vijay Route PRN Reason Start Time Stop Time Status Last Admin Dose Admin (Zofran 4mg/2ml vial) 4 mg ONCE ONCE IV 09/05/24 07:50 09/05/24 07:53 DC 09/05/24 08:01 4 MG (morphine inj.) 4 mg Q20M PRN IV moderate to severe pain 4-10 09/05/24 07:50 09/05/24 09:14 DC 09/05/24 09:14 4 MG (0.9% sodium chloride (NS) 1000ml IV soln) 1,000 ml ONCE ONCE IVB 09/05/24 07:50 09/05/24 07:51 DC 09/05/24 08:02 1,000 ML (fentaNYL 0.05 MG/ML syringe) 75 mcg ONCE ONCE IV 09/05/24 09:10 09/05/24 09:11 DC 09/05/24 09:52 75 MCG (Dilaudid inj.) 1 mg ONCE ONCE IV 09/05/24 11:20 09/05/24 11:21 DC 09/05/24 11:23 1 MG Vital Signs 09/05/24 09/05/24 09/05/24 09/05/24 07:46 08:10 08:51 09:40 Temp 97.7 Pulse 92 91 91 Resp 18 18 18 B/P (MAP) 130/103 153/95 (114) 124/88 (100) Pulse Ox 99 98 99 O2 Flow Rate 0 0 09/05/24 09/05/24 09/05/24 12:18 12:53 14:02 Pulse 82 79 73 Resp 18 18 16 B/P (MAP) 119/79 (92) 124/85 (98) 112/80 (91) Pulse Ox 99 99 100 O2 Flow Rate 0 0 Laboratory Tests Test 09/05/24 08:16 09/05/24 09:41 White Blood Count 9.7 Red Blood Count 5.41 Hemoglobin 13.9 Hematocrit 42.4 Mean Corpuscular Volume 78.4 Mean Corpuscular Hemoglobin 25.7 L Mean Corpuscular Hemoglobin Concent 32.8 L Red Cell Distribution Width 15.1 H Platelet Count 322 Mean Platelet Volume 7.9 Neutrophils (%) (Auto) 73.3 Lymphocytes (%) (Auto) 19.8 L Monocytes (%) (Auto) 5.5 Eosinophils (%) (Auto) 0.6 Basophils (%) (Auto) 0.8 Neutrophils # (Auto) 7.1 Lymphocytes # (Auto) 1.9 Monocytes # (Auto) 0.5 Eosinophils # (Auto) 0.1 Basophils # (Auto) 0.1 CBC Comment Sodium Level 137 Potassium Level 4.3 Chloride Level 106 Carbon Dioxide Level 24.5 Anion Gap 7 L Blood Urea Nitrogen 8 Creatinine 0.93 H Estimated GFR/1.73 m2 67 BUN/Creatinine Ratio 8.6 L Glucose Level 102 Calcium Level 10.0 Total Bilirubin 0.6 Aspartate Amino Transf (AST/SGOT) 22 Alanine Aminotransferase (ALT/SGPT) 40 Alkaline Phosphatase 144 H Total Protein 7.2 Albumin 3.5 Globulin 3.7 Albumin/Globulin Ratio 0.9 L Lipase 37 Chemistry Comments Urine Specimen Description Cln catch midstream Urine Color Yellow Urine Clarity Slightly cloudy Urine pH 6.0 Urine Specific [place] 1.015 Urine Protein Negative Urine Glucose (UA) Negative Urine Ketones Negative Urine Occult Blood Negative Urine Nitrite Negative Urine Bilirubin Negative Urine Urobilinogen 2.0 H Urine Leukocyte Esterase Trace H Urine RBC None seen Urine WBC 5-10 H Urine Squamous Epithelial Cells Moderate Urine Bacteria 3+ Urine Mucus Many Urine Culture Indicated Indicated Volume Urine Centrifuged 10 ml Urine HCG, Qualitative Negative Urine Comment Microbiology Date/Time Source Procedure Growth Status 09/05/24 10:13 Urine Clean Catch Midstream Urine Culture - Preliminary Culture received. Resulted Medical Decision Making Additional info obtained from: old records Findings Differential diagnosis includes but is not limited to: ACUTE APPENDICITIS, URETERAL COLIC, RENAL COLIC, PYELONEPHRITIS, HERNIA Abdomen and pelvis CT scan without IV contrast, indication: Abdominal pain, right low back pain Impression: Prior sha-en-Y gastric bypass surgery. No bowel obstruction, fluid collection, or free air. Normal appendix. Laboratory data independent interpretation: CBC: Unremarkable CMP: Unremarkable. Urinalysis: CONTAMINATED SPECIMEN Urine : NEGATIVE Emergency department course/medical decision-making: Patient presents with right lower quadrant abdominal pain and right low back pain. Patient's lab work is unremarkable. Patient is given 1 L normal saline, Zofran 4 mg IV for nausea and morphine 4 mg IV for pain. Patient has many allergies to pain medications and NSAIDs. Patient apparently did not get any significant relief from the 1st 4 mg of morphine. Patient given fentanyl 75 mg IV with 0 pain relief. Patient given Dilaudid 1 mg IV and she her pain improved from a 9/10 to 6/10. Lab work and imaging is all normal or unremarkable. Cause for her pain is unknown. Consultation/communications: Departure Time of Disposition: 13:47 Disposition: 01 HOME / SELF CARE / HOMELESS Impression: Primary Impression: Abdominal pain of unknown cause Condition: Stable Discharge Instructions: Abdominal Pain (Nonspecific) Additional Instructions: FOLLOW UP WITH YOUR PRIMARY CARE DOCTOR THIS WEEK FOR YOUR PAIN. CAUSE FOR YOUR PAIN IS UNKNOWN. Prescriptions Aripiprazole* (Abilify*) 15 Mg Tab 1 TAB PO HS for 30 Days, #30 TAB 0 Refills Prov: KELVIN SANTOYO MD 09/05/24 Mirtazapine (Mirtazapine) 45 Mg Tab.rapdis 1 TAB PO HS for 30 Days, #30 TAB 0 Refills Prov: KELVIN SANTOYO MD 09/05/24 Education Educated: Patient Educated regarding: diagnosis, treatment, need for follow up Signature Scribe Signature: No scribe Attestation: No scribe KELVIN SANTOYO MD Sep 05, 2024 07:56
[2024-09-05] MEDS: ondansetron/PF 4mg/2ml inj IV ONE (08:01)
[2024-09-05] MEDS: normal saline 1000ML IV soln IVB ONE (08:02)
[2024-09-05] MEDS: morphine 4 MG/ML inj SYRINge IV PRN (08:02)
[2024-09-05 08:37] LABS: MEAN PLATELET VOLUME 7.9 FL (7.4-10.4); RED CELL DISTRIBUTION WIDTH 15.1 % (11.5-14.5)
[2024-09-05 09:18] LABS: CREATININE 0.93 MG/DL (0.40-0.90); TOTAL CARBON DIOXIDE 24.5 MMOL/L (24-32); eGFR 67 ML/MIN
[2024-09-05] MEDS: fentaNYL/PF 50MCG/1 ML 2ML syringe IV ONE (09:52)
[2024-09-05 10:05] LABS: LEUKOCYTE ESTERASE ,URINE TRACE (Neg); NITRITES, URINE NEGATIVE (Neg); OCCULT BLOOD,URINE NEGATIVE (Neg); URINE HCG NEGATIVE (NEG)
[2024-09-05 10:06] LABS: UA COLLECTION TYPE CLN CATCH MIDSTREAM
[2024-09-05 10:13] LABS: MUCUS STRANDS MANY /LPF (Neg); SQUAMOUS EPITHELIAL CELL,UR MODERATE /LPF (FEW)
--- NOTE | 2024-09-05 12:41 | RADIOLOGY REPORT ---
CLINICAL HISTORY: Abdominal Pain TECHNIQUE: CT of the abdomen and pelvis was performed without intravenous contrast. This exam was per formed according to our departmental dose optimization program. Up-to-date CT equipment and radiation dose reduction techniques are utilized as appropriate. CTDI: 29.77 DLP: 1684.92 WID: COMPARISON: CT CT ABDOMEN PELVIS on DOS: 07/27/23 FINDINGS: Lower Thorax: Trace pericardial fluid. Normal-sized heart. Linear bibasilar scarring or atelectasis. Liver and Biliary system: Grossly unremarkable unopacified liver. Prior cholecystectomy. No biliary ductal dilatation. Spleen: Unremarkable. Adrenal Glands and Kidneys: Unremarkable. Pancreas and Retroperitoneum: Mild pancreatic atrophy. There is no retroperitoneal lymphadenopathy. Aorta and Major Vessels: Aortoiliac vessels are normal in caliber. Bowel, Mesentery and Peritoneal space: Prior Elfego-en-Y gastric bypass surgery. There is a left abdomi nal small bowel anastomosis. Normal appendix. No free air or fluid collection. Pelvis: Prior hysterectomy. The left ovary is present. No pelvic lymphadenopathy. Urinary bladder is mildly distended. Abdominal wall and Osseous Structures: No destructive osseous lesion. IMPRESSION: Prior elfego-en-Y gastric bypass surgery. No bowel obstruction, fluid collection, or free air. Normal a ppendix.
[2024-09-05 14:12] VITALS: BP 112/80; PULSE 84; RESP 18; TEMP 97.7; O2SAT 98
[2024-09-05] MEDS ORDERED: MIRT45TA79 PO (14:13)
[2024-09-05] MEDS ORDERED: ARIP15TA3 PO (14:13)
[2024-09-05] MEDS: oxyCODONE SR 10mg (sust. release) tab PO ONE (14:28)
== END 2024-09-05 14:33 | disposition home or self-care (01) ==
LOC: ER 07:45
DX: R10.31 Right lower quadrant pain (principal); M54.50 Low back pain, unspecified; R11.2 Nausea with vomiting, unspecified; F31.9 Bipolar disorder, unspecified; G40.909 Epilepsy, unspecified, not intractable, without status epilepticus; F41.9 Anxiety disorder, unspecified; Z88.5 Allergy status to narcotic agent; Z88.6 Allergy status to analgesic agent; Z88.8 Allergy status to other drugs, medicaments and biological substances; Z90.49 Acquired absence of other specified parts of digestive tract; Z90.710 Acquired absence of both cervix and uterus; Z98.84 Bariatric surgery status
CPT/HCPCS: 36415; 74176; 80053; 81001; 81025; 83690; 85025; 87088; 87186; 96361; 96374; 96375; 96376; 99285; J1171; J2270; J2405; J3010; J7030; 87077

== ENCOUNTER 2024-09-27 09:27 | Inpatient (IN) | payer MEDICAID ==
[~2024-09-27] VITALS: Ht 177.8 cm; Wt 96.0 kg
[~2024-09-27 09:27] MED LIST changes: +ARIP15TA3 PO; -LACO150T4 PO; +MIRT45TA79 PO; +[UNRECOGNIZED DRUG - CODE] PO
[2024-09-27 09:57] LABS: MEAN PLATELET VOLUME 7.8 FL (7.4-10.4); RED CELL DISTRIBUTION WIDTH 15.1 % (11.5-14.5)
[2024-09-27 10:06] LABS: CREATININE 0.73 MG/DL (0.40-0.90); TOTAL CARBON DIOXIDE 22.8 MMOL/L (24-32); eCRCL 111 ML/MIN; eGFR 88 ML/MIN
--- NOTE | 2024-09-27 11:34 | Physician Documentation ---
History of Present Illness Chief Complaint: Abdominal Pain w/vomiting Stated Complaint: ABD PAIN Time Seen by MD: 11:14 OK to notify your PCP?: Yes Primary Medical Doctor: N/A Source: patient, RN/MD, RN notes reviewed, old records Mode of Arrival: EMS Exam Limitations: no limitations HPI Patient was seen and examined. Patient was given reassurance. This patient is complaining of lower abdominal pain. Patient states that she has been unable to make it till October 28 to his primary care physician. sHe has been having increased pain she is out of medications having some withdrawal symptoms with nausea and vomiting. sHe is unable to drink. sHe has had PATEL for 12 years. Patient's heart rate is in the 90s. sHe is normotensive. The patient has also been out of her Protonix. She has been having some stomach pains and cramps but now having coffee-ground emesis today and she states her stools were black. 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 past medical history: seizure disorder, multiple sclerosis, cyclic vomiting. Possible POTS disorder Past surgical history: gastric bypass Social history: Denies tobacco alcohol or recreational drugs Medication Reconciliation Allergies: Coded Allergies: haloperidol (Verified Allergy, Severe, Hives, Nausea, 09/27/24) tramadol (Verified Allergy, Severe, throat swelling, 09/27/24) ketorolac (Verified Allergy, Intermediate, 09/27/24) acetaminophen (Verified Allergy, Unknown, 09/27/24) DUE TO LIVER FAILURE meloxicam (Verified Allergy, Unknown, 09/27/24) ibuprofen (Verified Adverse Reaction, Severe, 09/27/24) S/P gastric bipass Scheduled Aripiprazole (Aripiprazole), 1 TAB PO HS, (Reported) Cyclobenzaprine* (Cyclobenzaprine*), 1 TAB PO Q8H Dextroamphetamine/Amphetamine (Adderall 20 mg Tablet), 1 TAB PO TID, (Reported) Famotidine (Pepcid AC), 1 TAB PO DAILY Lacosamide (Lacosamide), 1 TAB PO BID, (Reported) Lidocaine (Lidoderm), 1 PATCH TOP DAILY Mirtazapine (Remeron), 1 TAB PO HS ONDANSETRON ODT 4mg tablet (Ondansetron Odt), 1 TABLET PO Q6H Semaglutide (Wegovy), 1.7 MG SQ Q7D, (Reported) Scheduled PRN Lorazepam (Ativan), 1 TAB PO Q8H PRN for for anxiety/agitation Oxycodone Hcl (Oxycodone Hcl), 1 TAB PO Q6H PRN for pain, (Reported) Miscellaneous Medications Tamsulosin Hcl* (Flomax*), (Reported) Discontinued Medications Aripiprazole* (Abilify*), 1 TAB PO HS Discontinued Reason: completed med therapy Lacosamide (Vimpat), 1 TAB PO Q12H Discontinued Reason: completed med therapy Mirtazapine (Mirtazapine), 1 TAB PO HS Discontinued Reason: completed med therapy Pantoprazole Sodium (PROTONIX tablet), 40 MG PO BID Discontinued Reason: patient no longer taking Past Medical History Past Medical History: Multiple Sclerosis, Seizures, Kidney Stones, Chronic Pain, Anxiety, Bipolar Past Surgical History: noncontributory, cholecystectomy, hysterectomy Alcohol Use: None Drug Use: none Lives with: S/O Lives In: Home Occupation: employed Review of Systems All Other Systems at this time: Reviewed and Negative Physical Exam Vital Signs: RN Vital Signs have been reviewed: Yes, Temperature: 98.4, Source: Oral, Heart Rate: 92, Respiratory Rate: 16, BP: 132/95, Pulse Oximetry: 99, Weight: 96.000 Oxygen Flow Rate: 0 Physical Exam General: The patient is well developed, well nourished, nontoxic appearing and is in no acute distress. Uncomfortable appearing Skin: [place], warm and dry with no rashes. HEENT: Head was normocephalic and atraumatic. Eyes - pupils equal, round, reactive to light and accommodation. Extraocular movements were intact. Conjun ctivae were nonicteric. The mouth and oropharynx were clear with moist mucous membranes. There were no pharyngeal exudates or erythema. Neck: Supple and nontender. There was no jugular venous distention, lymphadenopathy, thyromegaly or masses. Chest: Clear to auscultation bilaterally without wheezes, rales or rhonchi. No accessory muscle use. No dullness to percussion. Heart: Rate regular and rhythmic. S1, S2. No murmurs. Palpation of the chest wall was normal. No rubs or thrills. Abdomen: Slightly distended. Positive bowel sounds. No guarding or rebound. No hepatosplenomegaly or palpable masses. Positive right upper quadrant tenderness Rectal: External hemorrhoids noted nonbleeding. No fissures no masses, normal rectal tone. No stool in the vault guaiac positive Extremities: No cyanosis, clubbing or edema. The patient moves all extremities. Pulses were equal and symmetric. Neurologic: Motor sensory grossly intact Psychologic: The patient was oriented to person, place and time. The patient demonstrated appropriate judgement and insight. Progress Progress Note I discussed the case with GI who kindly stated she would evaluate the patient for an EGD emergently 2:22 p.m.. I discussed the case with GI 3:00 p.m. discussed the case with the hospitalist service Dr. Puente team Results/Orders Reviewed/noted all lab results: Yes Results/Orders Orders - WESTON CARR MD Urinalysis, Cult If Indicated (09/27/24 09:43) Hcg, Ur Ql (09/27/24 09:43) Straight Cath For Urine Sample (09/27/24 09:43) Occult Bld Stool (09/27/24 ) Ethanol (09/27/24 11:14) MG (09/27/24 11:14) Drug Screen, Urine (09/27/24 11:14) Completed Orders - WESTON ACRR MD Cbc/Diff (09/27/24 09:43) BMP (09/27/24 09:43) Lipase (09/27/24 09:43) CMP (09/27/24 09:43) [place] (09/27/24 09:43) Type And Screen (09/27/24 09:43) Vital Signs 09/27/24 09/27/24 09/27/24 09/27/24 09:30 09:38 09:38 11:20 Temp 98.4 98.4 Pulse 101 90 92 Resp 18 20 31 16 B/P (MAP) 122/79 132/95 (107) Pulse Ox 100 99 O2 Flow Rate 0 0 0 Laboratory Tests Test 09/27/24 09:43 White Blood Count 8.8 Red Blood Count 5.27 Hemoglobin 13.4 Hematocrit 41.4 Mean Corpuscular Volume 78.5 Mean Corpuscular Hemoglobin 25.5 L Mean Corpuscular Hemoglobin Concent 32.4 L Red Cell Distribution Width 15.1 H Platelet Count 301 Mean Platelet Volume 7.8 Neutrophils (%) (Auto) 74.8 Lymphocytes (%) (Auto) 19.2 L Monocytes (%) (Auto) 4.7 Eosinophils (%) (Auto) 0.5 Basophils (%) (Auto) 0.8 Neutrophils # (Auto) 6.6 Lymphocytes # (Auto) 1.7 Monocytes # (Auto) 0.4 Eosinophils # (Auto) 0.0 Basophils # (Auto) 0.1 CBC Comment Sodium Level 140 Potassium Level 4.2 Chloride Level 108 H Carbon Dioxide Level 22.8 L Anion Gap 9 Blood Urea Nitrogen 14 Creatinine 0.73 Estimated GFR/1.73 m2 88 BUN/Creatinine Ratio 19.2 Glucose Level 90 Lactic Acid Level 2.0 Calcium Level 10.0 Total Bilirubin 0.3 Aspartate Amino Transf (AST/SGOT) 14 Alanine Aminotransferase (ALT/SGPT) 22 Alkaline Phosphatase 107 Total Protein 6.9 Albumin 3.5 Globulin 3.4 Albumin/Globulin Ratio 1.0 L Lipase 34 Chemistry Comments Re-Evaluation Re-Evaluation : Re-Evaluation: Unchanged Progress Patient was seen and examined. Patient was given reassurance. Patient has multiple medical problems. She has been off her medications. She is having severe abdominal pain received pain medications. Patient was guaiac positive she states she has some coffee-ground emesis but is also guaiac positive. Possible stress ulcers but she does have some history failure issues as well. The patient's laboratory work was obtained her LFTs were reassuring and within normal limits. Lactic acid was 2.0. Lipase 34. Chemistry within normal limits. BUN is normal at 14 creatinine at 0.73. Coagulation is pending. CBC also reassuring with a WBC of 8 hemoglobin 13 hematocrit 41 platelets 301. Patient was then admitted to the hospitalist service for further workup and care. Patient is a cirrhotic discussed the case with the hospitalist service who recommended not only receiving high-dose Protonix but also Sandostatin. Patient is high-risk for bleed. Her platelets were reassuring. Her INR is reassuring at 1.0. Continuous monitoring tech interpretation shows sinus tachycardia heart rate 100s, abnormal, my interpretation. Pulse oximetry monitor interpretation shows normal oxygenation at 99% room air, normal, my interpretation. Medical Decision Making Additional info obtained from: old records Differential Dx:Considerations: Include: Aortic dissection, Appendicitis, Bowel obstruction, Cholangitis, Cholelithasis, Constipation, Diverticular disease, Esophagitis, Gastritis/PUD, Gastroenteritis, GI hemorrhage, Hernia, Hepatitis, Inflammatory BD, Ischemic bowel, Pancreatitis, Other Departure Disposition: ADMITTED INPATIENT Admitted to Inpatient Unit: yes, to hospitalist, to surgeon (Gastroenterology) Admission Level of Care: PCU with Tele Impression: Primary Impression: Upper GI bleed Additional Impressions: Cirrhosis Qualified Codes: K74.60 - Unspecified cirrhosis of liver; R18.8 - Other ascites Abdominal pain Qualified Codes: R10.11 - Right upper quadrant pain Medical non-compliance Referrals: NO PRIMARY CARE PROVIDER (PCP) Education Educated: Patient Educated regarding: diagnosis Critical Care Note Total Time (mins): 30 Critical Care Note The very real possibility of a deterioration of this patient's condition required the highest level of my preparedness for sudden, emergent intervention. I provided critical care services, which included medication orders, frequent reevaluations of the patient's condition and response to treatment, ordering and reviewing test results, and discussing the case with various consultants. Excludes time spent performing separately billable procedures. The critical care time associated with the care of the patient was. 30 minutes Signature Scribe Signature: . Attestation: The note accurately reflects work and decisions made by me.Weston Carr MD 09/27/24 11:35 WESTON CARR MD Sep 27, 2024 11:34
[2024-09-27] MEDS ORDERED: pantoprazole 40mg IV 80 MG in normal saline 100ml IV soln 100 ML IV ONE (11:35)
[2024-09-27 11:36] LABS: ETHANOL < 10 MG/DL (<10)
[2024-09-27] MEDS: ondansetron/PF 4mg/2ml inj IV ONE (11:49)
[2024-09-27] MEDS ORDERED: SEMA1.7P SQ (13:57)
[2024-09-27] MEDS ORDERED: TAMS-55 PO (13:57)
[2024-09-27 14:26] LABS: URINE HCG NEGATIVE (NEG)
[2024-09-27 14:30] LABS: LEUKOCYTE ESTERASE ,URINE NEGATIVE (Neg); NITRITES, URINE NEGATIVE (Neg); OCCULT BLOOD,URINE NEGATIVE (Neg)
[2024-09-27 14:37] LABS: UA COLLECTION TYPE NON-SPECIFIED
[2024-09-27 14:38] LABS: CAL OXALATE CRYSTALS 4+ /HPF (NEGATIVE); MUCUS STRANDS MANY /LPF (Neg); SQUAMOUS EPITHELIAL CELL,UR MANY /LPF (FEW)
[2024-09-27 14:59] LABS: APTT 24 SECONDS (22-32); INR 1.0 INR
[2024-09-27] MEDS ORDERED: potassium Cl 40MEQ/1/2NS 520ml 520 ML IV PRN (15:20)
[2024-09-27] MEDS ORDERED: magnesium Cl slow-release 64mg tablet PO PRN (15:20)
[2024-09-27] MEDS ORDERED: magnesium hydroxide 30ml (MOM) UD suspension PO PRN (15:20)
[2024-09-27] MEDS ORDERED: mag hydrox/Alum hydrox/simeth 30ml oral suspension PO PRN (15:20)
[2024-09-27] MEDS ORDERED: magnesium sulf-water 4G/100mL 100 ML IV PRN (15:20)
[2024-09-27] MEDS ORDERED: potassium Cl 20 mEq SR tablet PO PRN ×2 (15:20)
[2024-09-27] MEDS ORDERED: magnesium sulf-water 2g/50mL 50 ML IV PRN (15:20)
[2024-09-27 15:32] LABS: URINE AMPHETAMINE SCREEN POSITIVE (Neg); URINE BARBITUATE SCREEN NEGATIVE (Neg); URINE BENZODIAZEPINES SCREEN NEGATIVE (Neg); URINE CANNABINOID SCREEN POSITIVE (Neg); URINE COCAINE SCREEN NEGATIVE (Neg); URINE METHADONE SCREEN NEGATIVE (Neg); URINE OPIATE SCREEN POSITIVE (Neg); URINE PHENCYCLIDINE SCREEN NEGATIVE (Neg)
[2024-09-27 15:38] LABS: OCCULT BLOOD STOOL POSITIVE (Neg)
[2024-09-27] MEDS: CefTRIAXone/D5W-Rocephin 1gm 50 ML IV SCH (16:02)
[2024-09-27] MEDS: normal saline 1000ml 1,000 ML IV SCH (16:02)
--- NOTE | 2024-09-27 16:14 | HISTORY AND PHYSICAL-Residence ---
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 Patient reports that the abdominal pain has been progressively worsening over the last one week and rates it currently 10 on a scale of 10. She denied any aggravating or relieving factors and reported that the pain has been constant and progressively getting worse. She also complains of associated nausea and vomiting since the last 3-4 days and reports that she has been having coffee- ground emesis during this time. She endorses at least 3-4 episodes of vomiting every day. Patient mentions that he has a history of multiple renal stones in the past and complaints of right-sided flank pain since the last 2-3 weeks. Patient reported that she has not been able to eat anything since the past 3-4 days due to severe nausea and vomiting. She reports associated lightheadedness and generalized weakness due to the pain. The patient also reported that she has a history of chronic pain syndrome and is on multiple pain medications. She stated that her primary care physician at [facility] has a left and she is currently without any primary care physician and in the process of establishing a new one. She recently ran out of few of her medications. She denies any fevers, chills, chest pain, palpitations, headaches, loss of consciousness. Allergies: Coded Allergies: haloperidol (Verified Allergy, Severe, Hives, Nausea, 09/27/24) tramadol (Verified Allergy, Severe, throat swelling, 09/27/24) ketorolac (Verified Allergy, Intermediate, 09/27/24) acetaminophen (Verified Allergy, Unknown, 09/27/24) DUE TO LIVER FAILURE meloxicam (Verified Allergy, Unknown, 09/27/24) ibuprofen (Verified Adverse Reaction, Severe, 09/27/24) S/P gastric bipass Home Medications Home Medications Active Cyclobenzaprine* (Cyclobenzaprine HCl) 10 Mg Tablet 1 Tab PO Q8H 10 Days Lidoderm (Lidocaine) 5 % Adh..patch 1 Patch TOP DAILY 30 Days may wear up to 12 hours Pepcid AC (Famotidine) 20 Mg Tablet 1 Tab PO DAILY 30 Days Ondansetron Odt (Ondansetron HCl) 4 Mg Tab.rapdis 1 Tablet PO Q6H Ativan (Lorazepam) 1 Mg Tablet 1 Tab PO Q8H PRN 5 Days Remeron (Mirtazapine) 45 Mg Tablet 1 Tab PO HS 30 Days Reported Flomax* (Tamsulosin HCl) 0.4 Mg Cap.sr.24h Wegovy (Semaglutide) 1.7 Mg/0.75 Ml Pen.injctr 1.7 Mg SQ Q7D Adderall 20 mg Tablet (Dextroamphetamine/Amphetamine) 20 Mg Tablet 1 Tab PO TID Oxycodone Hcl 30 Mg Tablet 1 Tab PO Q6H PRN Lacosamide 150 Mg Tablet 1 Tab PO BID Aripiprazole 15 Mg Tablet 1 Tab PO HS Past Medical History Past Medical History Multiple sclerosis, seizures, depression, renal stones, PATEL, cirrhosis, gastric bypass Past Surgical History Surgical History Comment Lilo fundoplication 12 years ago Gastric bypass surgery 10 years ago Partial hysterectomy seven years ago Urethral stents four years ago Ovarian cyst torsion, exploratory laparotomies Cholecystectomy Past Social History Alcohol Use: None Drug Use: None Lives with: S/O Lives In: Home Occupation: employed ROS All Other Systems: Reviewed and Negative ROS CONSTITUTIONAL: Generalized weakness. No fevers or chills recently reported. EYES: No pain, erythema, or discharge. No blurring of vision. ENT: No sore throat, No epistaxis. No tinnitus. CARDIOVASCULAR: No chest pain, chest pressure, chest discomfort. no palpitations or syncope. No lower extremity edema. No paroxysmal nocturnal dyspnea. RESPIRATORY: No shortness of breath, No cough, No hemoptysis. No dyspnea. GASTROINTESTINAL: Normal appetite. Abdominal pain, nausea vomiting as mentioned in HPI. Coffee-ground emesis. GENITOURINARY: No frequency, urgency, nocturia. No hematuria or dysuria. MUSCULOSKELETAL: Generalized body aches. INTEGUMENTARY: no change in skin, hair, nails. No swelling. No bruising. No abrasions. NEUROLOGIC: No headache. No neck pain. No numbness or tingling of the extremities. No weakness. PSYCHIATRIC: no delusions, no depression, no loss of interest in normal activity or change in sleep pattern, no hallucinations or suicidal ideations HEMATOLOGICAL: No bleeding. No petechiae. No bruising. Exam Vitals: Vital Signs Date Time Temp Pulse Resp B/P (MAP) Pulse Ox O2 Delivery O2 Flow Rate FiO2 09/27/24 14:35 16 09/27/24 11:20 92 132/95 (107) 99 0 09/27/24 09:38 98.4 General: General: Awake and Alert, no acute distress. HEENT: Conjunctiva pink, Sclera clear, Mucus Membranes moist. Neck: Supple without masses and tenderness. Resp: Unlabored. Lungs clear to auscultation bilaterally. Heart: Regular Rate and rhythm, normal S1 and S2 without murmur, rub or gallop. Abdomen: Soft, tenderness on palpation of the epigastrium and the right upper quadrant. Bowel sounds present. Extremities: No cyanosis,clubbing or edema. Skin: Warm and Dry. Neurology: Decreased fine touch sensation in the right lower extremity and left upper extremity. No other focal motor or sensory deficits noted. Musculoskeletal: No restricted range Homans. No deformities. Psychiatric: Normal mood and affect. Diagnostic Data Last Recorded Lab Results: 09/27/24 0943 09/27/24 0943 Diagnostic Data: Laboratory Tests Test 09/27/24 14:34 Prothrombin Time 10.2 SECONDS (9.0-12.0) INR International Normalized Ratio 1.0 INR Activated Partial Thromboplast Time 24 SECONDS (22-32) Coagulation Comments Advance Care Planning Advanced Care planning: Add on additional 30 min Additional Plan Possible upper GI bleed-peptic ulcer disease versus esophageal varices Decompensated liver cirrhosis PATEL Child Tapia class a The patient's H&H is 13.4 and 41.4. The nausea and vomiting is currently controlled by IV ondansetron. Started the patient on IV Protonix 80 mg bolus followed by Protonix drip. Starting the patient on IV octreotide in view of history of liver cirrhosis and possible esophageal variceal bleed. Starting the patient on IV ceftriaxone 1 g daily for prophylaxis for SBP. Continue IV fluids for hydration and maintenance. Monitor vitals closely. We will continue to monitor the patient's H and H closely. In case the H&H falls less than 7 grams/dL we will transfuse PRBC. The on-call corrections unit supervisor Dr. Carrera has been consulted by the ER physician. Appreciate recommendations. Multiple sclerosis Seizures Depression Chronic pain syndrome Restarted home dose of lacosamide aripiprazole, cyclobenzaprine. On home oxycodone p.r.n. for pain. Started pain management for supportive care in the hospital. History of multiple nephrolithiasis Urinary retention Restarted home tamsulosin 0.4 mg HS. CODE STATUS: Full code DVT prophylaxis: SCDs until ambulatory GI prophylaxis: IV Protonix Diet: NPO Disposition: Continue medical management. Awaiting GI consultation for a possible upper GI endoscopy. Jose Barlow MD Internal Medicine Resident, PGY-3 Date of Service: Sep 27, 2024 Billing Provider: SAMANTA HOLLIS MD,JOSE ANGELES, RES Sep 27, 2024 16:14
[2024-09-27] MEDS: octreotide inj. 1,250 MCG in normal saline 250ml IV soln 250 ML IV ONE (16:15)
[2024-09-27] MEDS: pantoprazole 40MG/NS 100ML BAG 100 ML IV SCH (16:15)
[2024-09-27] MEDS: octreotide 100mcg/1 ml ampule IV ONE (16:15)
[2024-09-27] MEDS: ondansetron/PF 4mg/2ml inj IV PRN (16:23)
[2024-09-27] MEDS: HYDROmorphone inj. 0.5 MG/0.5 ML DISP.SYRIN IV PRN (18:42)
[2024-09-27 19:16] LABS: MEAN PLATELET VOLUME 7.8 FL (7.4-10.4); RED CELL DISTRIBUTION WIDTH 15.4 % (11.5-14.5)
[2024-09-27 19:28] VITALS: BP 132/85; PULSE 85; RESP 16; TEMP 96.8; O2SAT 98
[2024-09-27 20:00] VITALS: RESP 16; O2SAT 97
[2024-09-27] MEDS: docusate sod 100mg capsule PO SCH (20:00)
[2024-09-27] MEDS: K and/or MAG REPLACEMENT MC SCH (20:00)
[2024-09-27] MEDS: LACOSAMIDE 50 MG TABLET PO SCH (20:58)
[2024-09-27 22:00] VITALS: BP 141/97; PULSE 88; RESP 13; TEMP 97.4; O2SAT 98
[2024-09-28] VITALS (14 sets, daily range): BP systolic 124–152; BP diastolic 81–92; PULSE 61–88; RESP 13–21; TEMP 96.8–98; O2SAT 10–100
[2024-09-28 02:36] LABS: MEAN PLATELET VOLUME 7.7 FL (7.4-10.4); RED CELL DISTRIBUTION WIDTH 15.3 % (11.5-14.5)
--- NOTE | 2024-09-28 05:14 | CONSULTATION ---
DATE OF CONSULTATION: 09/27/2024 DICTATING PHYSICIAN: Martha Medina MD REASON FOR CONSULTATION: Abdominal pain, coffee-ground emesis and melena. 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 Got progressively worse over a period of time. She also had associated nausea and vomiting in the past 3 to 4 days and has been having coffee-ground emesis during this time. She also has had melena. Her hemoglobin and hematocrit have remained stable, however. She has had not shown any hemodynamic instability. Denies taking any excessive aspirin or nonsteroidal antiinflammatory in the recent past. PAST MEDICAL HISTORY: As above. FAMILY HISTORY AND PERSONAL HISTORY: Noncontributory REVIEW OF SYSTEMS: A 12-point review of systems is essentially same as history of present illness PHYSICAL EXAMINATION: GENERAL: She is awake, alert, appears to be in no apparent distress. She has a generalized rash on the face. VITAL SIGNS: Normal. NECK: Supple. No thyromegaly. No JVD. No significant lymphadenopathy. HEENT: Oral cavity within normal limits. HEART: Normal. LUNGS: Normal. ABDOMEN: Soft, nontender. No masses, no organomegaly. Bowel sounds are present. LABORATORY DATA: Laboratory values were reviewed. Essentially unremarkable. She had a CT scan done in the end of August, which showed Elfego-en-Y gastric bypass surgery without any bowel obstruction. The liver was reported as grossly unremarkable and opacified liver. I do not have any recent imaging studies after the 09/05 this year. IMPRESSION: A 39-year-old lady admitted for abdominal pain, nausea, vomiting, hematemesis and melena. Hemoglobin and hematocrit are stable. The laboratory values are also stable. Peptic ulcer disease is likely a possibility, recommendation is n.p.o. after midnight. IV Protonix therapy until EGD is done. We will plan on EGD tomorrow and make further recommendations after the EGD. The risks and benefits explained, understands and wishes to proceed. Martha Medina MD TID: [id number] RECEIPT: [id number] /[facility]
[2024-09-28 07:24] LABS: MEAN PLATELET VOLUME 7.7 FL (7.4-10.4); RED CELL DISTRIBUTION WIDTH 15.5 % (11.5-14.5)
[2024-09-28 07:46] LABS: CHOL/HDL RATIO 2.1 (0.00-4.99); CREATININE 0.77 MG/DL (0.40-0.90); LDL CHOLESTEROL 32 MG/DL (50-100); TOTAL CARBON DIOXIDE 25.3 MMOL/L (24-32); eCRCL 105 ML/MIN; eGFR 83 ML/MIN
[2024-09-28] MEDS ORDERED: LIDOcaine 2% Viscous 15ml cup ONE (09:06)
[2024-09-28] MEDS ORDERED: fentaNYL/PF 50MCG/1 ML 2ML syringe ONE (10:09)
[2024-09-28] MEDS ORDERED: MIDAZolam 1 MG/ML 5ML VIAL ONE (10:10)
--- NOTE | 2024-09-28 16:06 | PROGRESS NOTE- Residence ---
Progress Note - Resident Providers to CC Resident Creating Document: VENANCIO BARNES, RES ~ Antibiotic Timeout Antibiotic Ordered?: No Subjective The patient was seen and examined bedside. She claims that her abdominal pain has been constant 10/10 severity, and only subsides to 7/10 after pain medication. She states that she has nausea but hasn't been vomiting since admission. She does not appear to be in apparent distress. Objective Vital Signs Date Time Temp Pulse Resp B/P (MAP) Pulse Ox O2 Delivery O2 Flow Rate FiO2 09/28/24 13:18 15 09/28/24 11:00 76 137/90 97 Room Air 09/28/24 11:00 98.0 09/28/24 10:32 0.0 General: Awake and Alert, no acute distress. HEENT: Conjunctiva pink, Sclera clear, Mucus Membranes moist. Neck: Supple without masses and tenderness. Resp: Unlabored. Lungs clear to auscultation bilaterally. Heart: Regular Rate and rhythm, normal S1 and S2 without murmur, rub or gallop. Abdomen: Soft, tenderness on palpation of the epigastrium and the right upper quadrant. Bowel sounds present. Extremities: No cyanosis,clubbing or edema. Skin: Warm and Dry. Neurology: Decreased fine touch sensation in the right lower extremity and left upper extremity. No other focal motor or sensory deficits noted. Musculoskeletal: No restricted range Homans. No deformities. Psychiatric: Normal mood and affect. Result Diagram: 09/28/24 0711 09/28/24 0711 Coagulation Studies Laboratory Tests Test 09/27/24 14:34 Prothrombin Time 10.2 SECONDS (9.0-12.0) INR International Normalized Ratio 1.0 INR Activated Partial Thromboplast Time 24 SECONDS (22-32) Coagulation Comments Assessment Assessment Abdominal pain possibly 2/2 Acute Gastritis Stool occult blood- Positive Hemoglobin and hematocrit have remained stable. BUN/Cr - within normal limits EGD -09/28/24 -Normal esophagus -Elfego-en-Y gastrojejunostomy with gastrojejunal anastomosis characterized by healthy appearing mucosa. -Erythematous mucosa in the stomach. Biopsied. -Normal examined duodenum AST trended up from 14 to 234 ALT trended up from 22 to 344 Alkaline phosphatase trended up from 107 to 168 Plan Plan We will await biopsy results. Continue i.v Protonix 40 mg Q12h Continue pain management Venancio Barnes MD Internal Medicine Resident, PGY-1 Date of Service: Sep 28, 2024 Billing Provider: MINDY GUNN MD,VENANCIO, RES Sep 28, 2024 16:06
--- NOTE | 2024-09-28 17:52 | PROGRESS NOTE- Residence ---
Progress Note - Resident Providers to CC Resident Creating Document: JOSE BARLOWTIK, PACO ~ Antibiotic Timeout Antibiotic Ordered?: No Subjective Patient seen and examined at the bedside today. He underwent upper GI endoscopy in the morning. Denied any concerns or complaints at the moment. Continues to have diffuse abdominal pain. Also reports of mild nausea but denied any further episodes of vomiting or coffee-ground emesis. Objective Vital Signs Date Time Temp Pulse Resp B/P (MAP) Pulse Ox O2 Delivery O2 Flow Rate FiO2 09/28/24 16:00 98.0 76 21 152/90 (110) 98 Room Air 09/28/24 10:32 0.0 Result Diagram: 09/28/24 0711 09/28/24 0711 General: Awake and Alert, no acute distress. HEENT: Conjunctiva pink, Sclera clear, Mucus Membranes moist. Neck: Supple without masses and tenderness. Resp: Unlabored. Lungs clear to auscultation bilaterally. Heart: Regular Rate and rhythm, normal S1 and S2 without murmur, rub or gallop. Abdomen: Soft, no guarding or rigidity present. Bowel sounds present. Extremities: No cyanosis,clubbing or edema. Skin: Warm and Dry. Neurology: Decreased fine touch sensation in the right lower extremity and left upper extremity. No other focal motor or sensory deficits noted. Musculoskeletal: No restricted range of movements. No deformities. Psychiatric: Normal mood and affect. 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 Plan Plan Coffee-ground emesis Acute upper GI bleed-ruled out Acute gastritis Status post Elfego-en-Y The patient's H&H has been stable. She denied any further episodes of coffee-ground emesis. The upper GI endoscopy was significant for erythematous stomach most likely secondary to gastritis. Biopsies have been taken during the endoscopy. Planned to follow up with the biopsy and manage accordingly. Discontinued IV octreotide drip. Continue IV Protonix 40 mg b.i.d.. Continuing fluid resuscitation with NS at 100 mL/hour. Continue IV ondansetron p.r.n. for nausea and vomiting. The chef & owner has been consulted. Recommend multivitamin supplementation in view of the patient's Elfego-en-Y gastric bypass surgery. Appreciate recommendations. We will follow up according. Decompensated liver cirrhosis PATEL Child Tapia class A EGD is negative for any esophageal varices. Discontinued IV octreotide. The patient's LFTs today show AST of 234, ALT 344, ALP 168. On Wegovy at home. Follows naval engineer-Dr. Ivan. Recommended outpatient follow up after discharge. Multiple sclerosis Seizures Depression Chronic pain syndrome Follows neurologist at the [facility]. Restarted home dose of lacosamide, aripiprazole, cyclobenzaprine, dextroamphetamine. On home oxycodone p.r.n. for pain. Started pain management for supportive care in the hospital. History of multiple nephrolithiasis Urinary retention Restarted home tamsulosin 0.4 mg HS. CODE STATUS: Full code DVT prophylaxis: SCDs until ambulatory GI prophylaxis: IV Protonix Diet: Regular diet Disposition: Continue medical management. Anticipate discharge home in the next 24-48 hours. Jose Barlow MD Internal Medicine Resident, PGY-3 Date of Service: Sep 28, 2024 Billing Provider: SAMANTA HOLLIS MD,JOSE ANGELES, RES Sep 28, 2024 17:52
[2024-09-28] MEDS: lactose-reduced food (Ensure Enlive) - 237ml bottle PO SCH (17:54)
[2024-09-28] MEDS: calcium carbonate/vitamin D3 tablet PO SCH (20:23)
[2024-09-29] MEDS: oxyCODONE IR 5mg (immed. release) tablet PO PRN (00:04)
[2024-09-29 04:56] LABS: MEAN PLATELET VOLUME 8.1 FL (7.4-10.4); RED CELL DISTRIBUTION WIDTH 15.3 % (11.5-14.5)
[2024-09-29 05:20] LABS: CREATININE 0.75 MG/DL (0.40-0.90); TOTAL CARBON DIOXIDE 26.8 MMOL/L (24-32); eCRCL 108 ML/MIN; eGFR 86 ML/MIN
[2024-09-29 06:00] VITALS: BP 111/69; PULSE 74; RESP 16; TEMP 98.1; O2SAT 97
[2024-09-29] MEDS: MULTIVIT-MIN/FERROUS GLUCONATE 9 MG/15 ML LIQUID PO SCH (07:29)
--- NOTE | 2024-09-29 09:33 | PROGRESS NOTE- Residence ---
Progress Note - Resident Providers to CC Resident Creating Document: MOLLYVENANCIO, RES ~ Antibiotic Timeout Antibiotic Ordered?: No Subjective Patient seen and examined at the bedside today. She is not in apparent distress. She states that she continues to have constant diffuse abdominal pain, 09/19. She denied any further episodes of vomiting or coffee-ground emesis. Her last bowel movement was on Friday and she reports that it was black and tarry and that she didn't notice the colour of her previous stools. She denies heart burn, fever and chills. Her Hemoglobin downtrended from 12.2 to 11.6 today. MCV-79, RDW-15.3. She states that she has been feeling weak since Friday and that she has less appetite. She hasn't noticed any weight changes. Her last colonoscopy was 6 years ago. She reported having few polyps which were removed and stated that the biopsy was normal.She would like to have a colonoscopy while she is here for polyp surveillance. Objective Vital Signs Date Time Temp Pulse Resp B/P (MAP) Pulse Ox O2 Delivery O2 Flow Rate FiO2 09/29/24 09:12 16 09/28/24 22:00 97.3 76 132/85 (101) 98 Room Air 09/28/24 10:32 0.0 General: Awake and Alert, no acute distress. HEENT: Conjunctiva pink, Sclera clear, Mucus Membranes moist. Neck: Supple without masses and tenderness. Resp: Unlabored. Lungs clear to auscultation bilaterally. Heart: Regular Rate and rhythm, normal S1 and S2 without murmur, rub or gallop. Abdomen: Soft, no guarding or rigidity present. Bowel sounds present. Extremities: No cyanosis,clubbing or edema. Skin: Warm and Dry. Neurology: Decreased fine touch sensation in the right lower extremity and left upper extremity. No other focal motor or sensory deficits noted. Musculoskeletal: No restricted range of movements. No deformities. Psychiatric: Normal mood and affect. Result Diagram: 09/29/2441809/29/24418 Coagulation Studies Laboratory Tests Test 09/27/24 14:34 Prothrombin Time 10.2 SECONDS (9.0-12.0) INR International Normalized Ratio 1.0 INR Activated Partial Thromboplast Time 24 SECONDS (22-32) Coagulation Comments Assessment Assessment Abdominal pain, possibly 2/2 Acute Gastritis The upper GI endoscopy was significant for erythematous stomach most likely secondary to gastritis. Biopsies have been taken during the endoscopy. Stool occult blood- Positive Patient reports having had colon polyps 6 years ago. No report available to review. Hb downtrended from 12.2 to 11.6, Hct-35.7 MCV-79, RDW-15.3 BUN-7, BUN/Cr - 9.3 She is hemodynamically stable. Colonoscopy tomorrow, with bowel prep today Plan Plan The patient will be prepped today for a colonoscopy tomorrow. Clear liquid diet NPO from midnight Start patient on Golytely Monitor H&H Continue pain management Continue IV Protonix 40 mg b.i.d.. Continuing fluid resuscitation with NS at 100 mL/hour. We will await biopsy results. The need for colonoscopy, its benefits and complications, and the need for surgical intervention in the event of any such complication were explained to the patient, she understands and wishes to proceed further. Venancio Serra MD Internal Medicine Resident, PGY-1 Date of Service: Sep 29, 2024 Billing Provider: MINDY GUNN MD, PREETHI, RES Sep 29, 2024 09:33 MINDY GUNN MD Sep 29, 2024 11:42
[2024-09-29 10:00] VITALS: BP 127/77; PULSE 86; RESP 18; TEMP 98.5; O2SAT 98
[2024-09-29] MEDS: PEG 3350/Na sulf,bicarb,Cl/KCl oral sol 4 liter bottle PO ONE (12:25)
--- NOTE | 2024-09-29 16:31 | PROGRESS NOTE- Residence ---
Progress Note - Resident Providers to CC Resident Creating Document: JOSE BARLOW, RES ~ Antibiotic Timeout Antibiotic Ordered?: No Subjective Patient seen and examined at the bedside today. She reports that she continues to have diffuse abdominal pain. Denies any more nausea or vomiting at the moment. Denied any further episodes coffee-ground emesis. No acute overnight events were reported. Objective Vital Signs Date Time Temp Pulse Resp B/P (MAP) Pulse Ox O2 Delivery O2 Flow Rate FiO2 09/29/24 11:17 18 09/29/24 10:00 98.5 86 127/77 (94) 98 Room Air 09/29/24 08:00 0.0 Result Diagram: 09/29/2441809/29/24418 General: Awake and Alert, no acute distress. HEENT: Conjunctiva pink, Sclera clear, Mucus Membranes moist. Neck: Supple without masses and tenderness. Resp: Unlabored. Lungs clear to auscultation bilaterally. Heart: Regular Rate and rhythm, normal S1 and S2 without murmur, rub or gallop. Abdomen: Soft, no guarding or rigidity present. Bowel sounds present. Extremities: No cyanosis,clubbing or edema. Skin: Warm and Dry. Neurology: Decreased fine touch sensation in the right lower extremity and left upper extremity. No other focal motor or sensory deficits noted. Musculoskeletal: No restricted range of movements. No deformities. Psychiatric: Normal mood and affect. Coagulation Studies Laboratory Tests Test 09/27/24 14:34 Prothrombin Time 10.2 SECONDS (9.0-12.0) INR International Normalized Ratio 1.0 INR Activated Partial Thromboplast Time 24 SECONDS (22-32) Coagulation Comments Assessment Assessment 39 years old female with past medical history of chronic pain syndrome, decompensated liver failure, multiple sclerosis, seizures, urinary retention is admitted in the hospital for evaluation and management of acute abdominal pain secondary to acute gastritis. Plan Plan Coffee-ground emesis Acute upper GI bleed-ruled out Acute gastritis Status post Elfego-en-Y The patient's H&H has been stable. She denied any further episodes of coffee-ground emesis. The upper GI endoscopy was significant for erythematous stomach most likely secondary to gastritis. Biopsies have been taken during the endoscopy. Planned to follow up with the biopsy and manage accordingly. Discontinued IV octreotide drip. Continue IV Protonix 40 mg b.i.d.. Continuing fluid resuscitation with NS at 100 mL/hour. Continue IV ondansetron p.r.n. for nausea and vomiting. The clerk analyst has been consulted. Recommend multivitamin supplementation in view of the patient's Elfego-en-Y gastric bypass surgery. Appreciate recommendations. We will follow up according. The on-call sausage mixer have recommended that the patient get colonoscopy done in view of her history of colonoscopy six years ago which was significant for polyps. She also reported to the sausage mixer that she noticed dark tarry stools. The patient is scheduled to get a colonoscopy tomorrow in the a.m.. Decompensated liver cirrhosis PATEL Child Tapia class A EGD is negative for any esophageal varices. Discontinued IV octreotide. The patient's LFTs are trending down. On Wegovy at home. Follows heating and refrigeration inspector-Dr. Ivan. Recommended outpatient follow up after discharge. Multiple sclerosis Seizures Depression Chronic pain syndrome Follows neurologist at the [facility]. Restarted home dose of lacosamide, aripiprazole, cyclobenzaprine, dextroamphetamine. On home oxycodone p.r.n. for pain. Started pain management for supportive care in the hospital. History of multiple nephrolithiasis Urinary retention Restarted home tamsulosin 0.4 mg HS. CODE STATUS: Full code DVT prophylaxis: SCDs until ambulatory GI prophylaxis: IV Protonix Diet: Clear liquid diet Disposition: Continue medical management. Patient is planned to get a colonoscopy tomorrow. Anticipate discharge home in the next 24-48 hours. Jose Barlow MD Internal Medicine Resident, PGY-3 Date of Service: Sep 29, 2024 Billing Provider: SAMANTA HOLLIS MD,JOSE ANGELES, RES Sep 29, 2024 16:31
[2024-09-29 18:00] VITALS: BP 125/83; PULSE 85; RESP 18; TEMP 98; O2SAT 99
[2024-09-29 20:00] VITALS: RESP 18; O2SAT 98
[2024-09-29 22:00] VITALS: BP 148/88; PULSE 78; RESP 16; TEMP 97.7; O2SAT 99
[2024-09-30] VITALS (14 sets, daily range): BP systolic 104–141; BP diastolic 63–94; PULSE 62–81; RESP 12–20; TEMP 96–98.2; O2SAT 96–100
[2024-09-30 04:52] LABS: MEAN PLATELET VOLUME 7.9 FL (7.4-10.4); RED CELL DISTRIBUTION WIDTH 15.4 % (11.5-14.5)
[2024-09-30 05:08] LABS: CREATININE 0.66 MG/DL (0.40-0.90); TOTAL CARBON DIOXIDE 29.6 MMOL/L (24-32); eCRCL 123 ML/MIN; eGFR > 90 ML/MIN
[2024-09-30] MEDS ORDERED: fentaNYL/PF 50MCG/1 ML 2ML syringe ONE (10:15)
[2024-09-30] MEDS ORDERED: midazolam 1 mg/ML 2ml injection ONE (10:17)
[2024-09-30] MEDS ORDERED: propofol inj 20 ML IV ONE ×2 (10:30→10:31)
[2024-09-30] MEDS ORDERED: PANT-47 PO (12:58)
--- NOTE | 2024-09-30 18:42 | DISCHARGE SUMMARY-Residence ---
Discharge Summary Providers to CC Resident Creating Document: MESSI SORENSEN, RES ~ Discharge Summary Admission Diagnosis: Upper GI bleed Hospital Course DATE OF ADMISSION: 09/27/2024 DATE OF DISCHARGE: 09/30/2024 Discharge Diagnosis\Comment: Acute upper GI bleed-ruled out Acute gastritis Acute abdominal pain Decompensated liver cirrhosis Schmidt Child Tapia class a Multiple sclerosis Seizures Depression Chronic pain syndrome History of nephrolithiasis Urinary retention Operations\Procedures: EGD, colonoscopy by Dr. Medina Consultants: School Based Therapist-Dr. Medina Complications: None Condition on DC: Stable New Medications: Pantoprazole Sodium (PROTONIX tablet) 40 Mg Tablet.dr 40 MG PO DAILY for 30 Days, #30 TAB.SR Continued Medications: Aripiprazole (Aripiprazole) 15 Mg Tablet 1 TAB PO HS Cyclobenzaprine* (Cyclobenzaprine*) 10 Mg Tablet 1 TAB PO Q8H for muscle spasms for 10 Days, #30 TAB 0 Refills Dextroamphetamine/Amphetamine (Adderall 20 mg Tablet) 20 Mg Tablet 1 TAB PO TID Lacosamide (Lacosamide) 150 Mg Tablet 1 TAB PO BID Lidocaine (Lidoderm) 5 % Adh..patch 1 PATCH TOP DAILY for 30 Days, #30 PATCH 0 Refills may wear up to 12 hours Lorazepam (Ativan) 1 Mg Tablet 1 TAB PO Q8H PRN for for anxiety/agitation for 5 Days, #15 TAB Mirtazapine (Remeron) 45 Mg Tablet 1 TAB PO HS for 30 Days, #30 TAB ONDANSETRON ODT 4mg tablet (Ondansetron Odt) 4 Mg Tab.rapdis 1 TABLET PO Q6H, #16 TABLET Oxycodone Hcl (Oxycodone Hcl) 30 Mg Tablet 1 TAB PO Q6H PRN for pain Semaglutide (Wegovy) 1.7 Mg/0.75 Ml Pen.injctr 1.7 MG SQ Q7D Tamsulosin Hcl* (Flomax*) 0.4 Mg Cap.sr.24h 1 CAP PO DAILY Discontinued Medications: Famotidine (Pepcid AC) 20 Mg Tablet 1 TAB PO DAILY for 30 Days, #30 TAB 0 Refills Discharge Summary: History of Present Illness 39-year-old female past medical history of multiple sclerosis, 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 Patient reports that the abdominal pain has been progressively worsening over the last one week and rates it currently 10 on a scale of 10. She denied any aggravating or relieving factors and reported that the pain has been constant and progressively getting worse. She also complains of associated nausea and vomiting since the last 3-4 days and reports that she has been having coffee- ground emesis during this time. She endorses at least 3-4 episodes of vomiting every day. Patient mentions that he has a history of multiple renal stones in the past and complaints of right-sided flank pain since the last 2-3 weeks. Patient reported that she has not been able to eat anything since the past 3-4 days due to severe nausea and vomiting. She reports associated lightheadedness and generalized weakness due to the pain. The patient also reported that she has a history of chronic pain syndrome and is on multiple pain medications. She stated that her primary care physician at [facility] has a left and she is currently without any primary care physician and in the process of establishing a new one. She recently ran out of few of her medications. Course in the hospital Initially there was high suspicion of the patient having upper GI bleed secondary to peptic ulcer disease versus esophageal varices in view of decompensated liver cirrhosis. She was started on IV Protonix and IV octreotide drip. Her H&H was monitored closely. She was also treated with supportive care with IV ondansetron for nausea and vomiting, IV fluids for hydration and maintenance. Her vitals were monitored closely. The on-call corporate director of pharmacy was consulted to further evaluate the suspicion of upper GI bleeding. The patient underwent EGD which was negative for any acute GI bleed and showed significant erythema secondary to gastritis. The patient also had a colonoscopy done during the hospitalization which was negative for any significant findings but was reported to have inadequate bowel prep and is recommended to get a colonoscopy in the next one year. The patient was also managed for her chronic pain syndrome with the supportive treatment. She has a decompensated liver cirrhosis secondary to SCHMIDT. Reported that she is seeing Dr. Ivan and was recommended to follow up with him post discharge. During the course of her hospitalization the patient's H&H remained stable. She did not have any further episodes of coffee-ground emesis or any other signs or symptoms of upper GI bleed. He is being discharged home and her condition is stable at the time of discharge. She is being discharged with the oral Protonix 40 mg p.o. daily for her acute gastritis. Recommendations at discharge: Follow up with the primary care physician in the next 1-2 weeks. Maintain compliance Protonix 40 mg p.o. daily. Follow up with cancellation clerk Dr. Ivan in the next two weeks. Make an appointment with a Dr. Medina at her clinic for gastroenterology follow up. In case of any worsening of symptoms or any other emergency call 911 or return to the ER immediately. Examination at the time of discharge: General: Awake and Alert, no acute distress. HEENT: Conjunctiva pink, Sclera clear, Mucus Membranes moist. Neck: Supple without masses and tenderness. Resp: Unlabored. Lungs clear to auscultation bilaterally. Heart: Regular Rate and rhythm, normal S1 and S2 without murmur, rub or gallop. Abdomen: Soft, no guarding or rigidity present. Bowel sounds present. Extremities: No cyanosis,clubbing or edema. Skin: Warm and Dry. Neurology: Decreased fine touch sensation in the right lower extremity and left upper extremity. No other focal motor or sensory deficits noted. Musculoskeletal: No restricted range of movements. No deformities. Psychiatric: Normal mood and affect. Laboratory Tests Test 09/29/24 04:19 09/30/24 04:17 White Blood Count 6.0 X10'3 4.4 X10'3 Red Blood Count 4.52 X10'6 4.40 X10'6 Hemoglobin 11.6 g/dl 11.7 g/dl Hematocrit 35.7 % 34.6 % Mean Corpuscular Volume 79.0 FL 78.6 FL Mean Corpuscular Hemoglobin 25.8 PG 26.5 PG Mean Corpuscular Hemoglobin Concent 32.6 g/dL 33.7 g/dL Red Cell Distribution Width 15.3 % 15.4 % Platelet Count 251 X10'3 225 X10'3 Mean Platelet Volume 8.1 FL 7.9 FL Neutrophils (%) (Auto) 62.7 % 57.7 % Lymphocytes (%) (Auto) 28.7 % 31.6 % Monocytes (%) (Auto) 6.6 % 8.1 % Eosinophils (%) (Auto) 1.3 % 1.6 % Basophils (%) (Auto) 0.7 % 1.0 % Neutrophils # (Auto) 3.8 X10'3 2.5 X10'3 Lymphocytes # (Auto) 1.7 X10'3 1.4 X10'3 Monocytes # (Auto) 0.4 X10'3 0.4 X10'3 Eosinophils # (Auto) 0.1 X10'3 0.1 X10'3 Basophils # (Auto) 0.0 X10'3 0.0 X10'3 CBC Comment Sodium Level 142 MMOL/L 141 MMOL/L Potassium Level 3.6 MMOL/L 3.7 MMOL/L Chloride Level 108 MMOL/L 106 MMOL/L Carbon Dioxide Level 26.8 MMOL/L 29.6 MMOL/L Anion Gap 7 5 Blood Urea Nitrogen 7 MG/DL 6 MG/DL Creatinine 0.75 MG/DL 0.66 MG/DL Estimated GFR/1.73 m2 86 ML/MIN > 90 ML/MIN BUN/Creatinine Ratio 9.3 9.1 Glucose Level 85 MG/DL 79 MG/DL Calcium Level 9.2 MG/DL 9.2 MG/DL Magnesium Level 2.1 MG/DL 1.9 MG/DL Total Bilirubin 0.2 MG/DL 0.4 MG/DL Aspartate Amino Transf (AST/SGOT) 59 U/L 406 U/L Alanine Aminotransferase (ALT/SGPT) 205 U/L 537 U/L Alkaline Phosphatase 137 IU/L 196 IU/L Total Protein 5.8 G/DL 5.7 G/DL Albumin 2.8 G/DL 2.8 G/DL Globulin 3.0 G/DL 2.9 G/DL Albumin/Globulin Ratio 0.9 1.0 Chemistry Comments *Problems/Diagnosis: (1) Acute gastritis (2) Decompensated hepatic cirrhosis (3) SCHMIDT (nonalcoholic steatohepatitis) (4) Multiple sclerosis (5) Seizures (6) Depression (7) Chronic pain syndrome (8) Nephrolithiasis (9) Urinary retention (10) Abdominal pain Status: Acute (11) Cirrhosis Status: Acute Total Time Spent on D/C: > 30 Minutes Date of Service: Sep 30, 2024 Billing Provider: SAMANTA HOLLIS MD Problem Qualifiers (1) Abdominal pain: Abdominal location: right upper quadrant Qualified Codes: R10.11 - Right upper quadrant pain (2) Cirrhosis: Hepatic cirrhosis type: unspecified hepatic cirrhosis Ascites presence: with ascites Qualified Codes: K74.60 - Unspecified cirrhosis of liver; R18.8 - Other ascites MESSI SORENSEN, RES Sep 30, 2024 18:41
--- NOTE | 2024-09-30 19:10 | PROGRESS NOTE- Residence ---
Progress Note - Resident Providers to CC Resident Creating Document: VENANCIO BARNES, PACO ~ Antibiotic Timeout Antibiotic Ordered?: No Subjective Patient was seen and examined at the bedside. She is not in apparent distress. No acute overnight events were reported. Objective Vital Signs Date Time Temp Pulse Resp B/P (MAP) Pulse Ox O2 Delivery O2 Flow Rate FiO2 09/30/24 13:51 16 09/30/24 12:15 97.9 74 141/89 (106) 98 09/30/24 11:45 Room Air 09/30/24 11:10 0.0 General: Awake and Alert, no acute distress. HEENT: Conjunctiva pink, Sclera clear, Mucus Membranes moist. Neck: Supple without masses and tenderness. Resp: Unlabored. Lungs clear to auscultation bilaterally. Heart: Regular Rate and rhythm, normal S1 and S2 without murmur, rub or gallop. Abdomen: Soft, no guarding or rigidity present. Bowel sounds present. Extremities: No cyanosis,clubbing or edema. Skin: Warm and Dry. Neurology: Decreased fine touch sensation in the right lower extremity and left upper extremity. No other focal motor or sensory deficits noted. Musculoskeletal: No restricted range of movements. No deformities. Psychiatric: Normal mood and affect. Result Diagram: 09/30/24 0417 09/30/24 0417 Coagulation Studies Laboratory Tests Test 09/27/24 14:34 Prothrombin Time 10.2 SECONDS (9.0-12.0) INR International Normalized Ratio 1.0 INR Activated Partial Thromboplast Time 24 SECONDS (22-32) Coagulation Comments Assessment Assessment Abdominal pain, possibly 2/2 Acute Gastritis EGD showed no evidence of bleeding but was significant for erythematous stomach most likely secondary to gastritis. We will await biopsy results. Colonoscopy was done today on request by the patient but the preparation of the colon was inadequate and the polyps could not be visualized. Recommend the patient to get a colonoscopy in the next 1 year. Plan Plan Continue patient on Protonix 40 mg p.o daily We will await biopsy results. Venancio Barnes, Internal Medicine Resident, PGY-1 Date of Service: Sep 30, 2024 Billing Provider: MINDY GUNN MD, PREETHI, RES Sep 30, 2024 19:10
== END 2024-09-30 14:23 | disposition home or self-care (01) | DRG 241 ==
LOC: ER 09:28 → ED HOLD 15:04 → PCU 3S 19:23 → SUR 3N 09-28 15:10
PROVIDERS: ADMIT Family Medicine; ATTEND Family Medicine
PROC: 0DB68ZX Excision of Stomach, Via Natural or Artificial Opening Endoscopic, Diagnostic (ICD-10-PCS; principal; 2024-09-28)
PROC: 0DJD8ZZ Inspection of Lower Intestinal Tract, Via Natural or Artificial Opening Endoscopic (ICD-10-PCS; 2024-09-30)
DX: K27.9 Peptic ulcer, site unspecified, unspecified as acute or chronic, without hemorrhage or perforation (principal); R18.8 Other ascites; K74.60 Unspecified cirrhosis of liver; K29.00 Acute gastritis without bleeding; G35 Multiple sclerosis; F31.9 Bipolar disorder, unspecified; F41.9 Anxiety disorder, unspecified; G89.4 Chronic pain syndrome; K31.89 Other diseases of stomach and duodenum; K75.81 Nonalcoholic steatohepatitis (NASH); G40.909 Epilepsy, unspecified, not intractable, without status epilepticus; Z88.8 Allergy status to other drugs, medicaments and biological substances; Z79.899 Other long term (current) drug therapy; Z90.710 Acquired absence of both cervix and uterus; Z91.199 Patient's noncompliance with other medical treatment and regimen due to unspecified reason; Z90.49 Acquired absence of other specified parts of digestive tract; Z98.84 Bariatric surgery status
CPT/HCPCS: 36415; 43239; 45378; 80053; 80061; 80305; 80320; 81001; 81025; 82272; 83036; 83605; 83690; 83735; 84443; 85025; 85027; 85610; 85730; 86885; 86900; 86901; 87081; 96365; 96375; 96376; 99152; 99291; A4620; G0378; J0696; J1171; J2250; J2270; J2354; J2405; J2470; J2704; J3010; J7030; J7040; J7050; J7120; Q0163